=== PATIENT | female | born 1950 | race Caucasian/White ===

== ENCOUNTER 2016-05-27 14:14 | Outpatient (CLI) | payer MEDICARE, BC ==
[2016-05-27 14:46] LABS: Anion Gap 17 mmol/L (10-20); BUN (Urea Nitrogen) 17 mg/dL (9.8-20.1); Calc. Creatinine Clearance 0 mL/min (70-130); Calcium 8.9 mg/dL (7.8-10.44); Carbon Dioxide 22 mmol/L (23-31); Chloride 100 mmol/L (98-107); Estimated GFR-MDRD 56; Glucose 136 mg/dL (80-115); Potassium 4.3 mmol/L (3.5-5.1); Sodium 135 mmol/L (136-145)
[2016-05-28 17:13] LABS: Creatinine, Urine Less than 20.00 mg/dL (47-110); Protein, Urine Random Quant Less than 10 mg/dL
== END 2016-05-27 14:15 | disposition home or self-care (01) ==
LOC: MADLAB 14:14
PROVIDERS: ATTEND Internal Medicine Nephrology
DX: I12.9 Hypertensive chronic kidney disease with stage 1 through stage 4 chronic kidney disease, or unspecified chronic kidney disease (principal); N18.3 Chronic kidney disease, stage 3 (moderate); E11.22 Type 2 diabetes mellitus with diabetic chronic kidney disease; R80.9 Proteinuria, unspecified; E87.1 Hypo-osmolality and hyponatremia
CPT/HCPCS: 36415; 80048; 82570; 83970; 84156

== ENCOUNTER 2017-01-21 13:46 | Outpatient (CLI) | payer MEDICARE, BC ==
[2017-01-21 15:06] LABS: Anion Gap 15 mmol/L (10-20); BUN (Urea Nitrogen) 22 mg/dL (9.8-20.1); Calc. Creatinine Clearance 0 mL/min (70-130); Calcium 8.8 mg/dL (7.8-10.44); Carbon Dioxide 26 mmol/L (23-31); Chloride 98 mmol/L (98-107); Estimated GFR-MDRD 45; Glucose 309 mg/dL (80-115); Potassium 4.4 mmol/L (3.5-5.1); Sodium 135 mmol/L (136-145)
== END 2017-01-21 13:47 | disposition home or self-care (01) ==
LOC: MADLAB 13:46
PROVIDERS: ATTEND Internal Medicine
DX: E87.1 Hypo-osmolality and hyponatremia (principal)
CPT/HCPCS: 36415; 80048

== ENCOUNTER 2017-01-25 13:33 | Outpatient (CLI) | payer MEDICARE, BC ==
--- NOTE | 2017-01-25 15:52 | RAD ---
RIGHT SHOULDER THREE VIEWS: 01/25/17 HISTORY: Chronic right shoulder pain. FINDINGS: Right shoulder prosthesis is in place with bulky heterotopic ossification superior to the humeral he ad component. No acute fractures are apparent. There is osteophytosis at the acromioclavicular joint . IMPRESSION: Abundant heterotopic ossification surrounding the right humeral head prosthesis. Please consider ort hopedic evaluation. POS: [facility]
--- NOTE | 2017-01-25 15:55 | RAD ---
FOUR VIEW LEFT KNEE SERIES 01/25/17 CLINICAL HISTORY: Osteoarthritis, chronic pain. Mild osteoarthritis of the left knee present. There is no fracture or capsular distention. There is patellar enthesophyte formation. IMPRESSION: No acute osseous abnormality. POS: [facility]
== END 2017-01-25 13:34 | disposition home or self-care (01) ==
LOC: MADRAD 13:33
PROVIDERS: ATTEND Internal Medicine
DX: M17.0 Bilateral primary osteoarthritis of knee (principal); M25.511 Pain in right shoulder

== ENCOUNTER → 2017-10-21 | Emergency (ER) | payer MEDICARE, BC ==
--- NOTE | 2017-10-21 22:05 | RAD ---
CHEST ONE VIEW: 10/21/17 HISTORY: Pain. COMPARISON: None. FINDINGS: There are sternotomy wires and mediastinal clips. Diminished lung volumes likely due to poor inspirat ory effort. No consolidation or mass. No pleural effusion or pneumothorax. Normal cardiac silhouette . Right humeral prosthesis is noted. IMPRESSION: No acute cardiopulmonary process. POS: [facility]
[2017-10-21 22:30] LABS: #Basophils 0.1 thou/uL (0.0-0.2); #Eosinphils 0.1 thou/uL (0.0-0.7); #Lymphocytes 3.2 thou/uL (1.20-3.40); #Monocytes 0.7 thou/uL (0.11-0.59); #Neutrophils 4.7 thou/uL (1.40-6.50); %Eosinophils 1.5 % (0.0-10.0); %Lymphocytes 36.5 % (21.0-51.0); %Monocytes 8.3 % (0.0-10.0); %Neutrophils 52.7 % (42.0-75.0); Hemoglobin 13.4 g/dL (12.0-16.0); Mean Corpuscular HGB CONC 34.3 g/dL (32.0-36.0); Mean Corpuscular Hemoglobin 30.4 pg (27.0-31.0); Mean Corpuscular Volume 88.7 fL (78.0-98.0); Mean Platelet Volume 8.3 fL (7.4-10.4); Platelet Count 244 thou/uL (130-400); RBC Distribution Width 11.9 % (11.5-14.5); Red Blood Cell (RBC) Count 4.41 mill/uL (4.20-5.40); White Blood Cell (WBC) Count 8.9 thou/uL (4.8-10.8)
[2017-10-21 22:32] LABS: ALT (SGPT) 19 U/L (8-55); AST (SGOT) 19 U/L (5-34); Alkaline Phosphatase 75 U/L (40-150); Anion Gap 14 mmol/L (10-20); BUN (Urea Nitrogen) 15 mg/dL (9.8-20.1); Bilirubin, Total 0.7 mg/dL (0.2-1.2); CK (CPK) 57 U/L (29-168); Calc. Creatinine Clearance 0 mL/min (70-130); Calcium 8.8 mg/dL (7.8-10.44); Carbon Dioxide 25 mmol/L (23-31); Chloride 100 mmol/L (98-107); Estimated GFR-MDRD 43; Globulin 2.9 g/dL (2.4-3.5); Glucose 230 mg/dL (80-115); Magnesium 2.4 mg/dL (1.6-2.6); Protein, Total 6.9 g/dL (6.0-8.3); Sodium 135 mmol/L (136-145)
[2017-10-21 22:38] LABS: CKMB 0.8 ng/mL (0-6.6); Troponin I Less than 0.010 ng/mL (< 0.028)
== END ==
LOC: MADERS 21:18
DX: I20.9 Angina pectoris, unspecified (principal); I10 Essential (primary) hypertension; E03.9 Hypothyroidism, unspecified; E78.5 Hyperlipidemia, unspecified; E11.9 Type 2 diabetes mellitus without complications; F32.9 Major depressive disorder, single episode, unspecified; F17.210 Nicotine dependence, cigarettes, uncomplicated; Z79.82 Long term (current) use of aspirin; Z79.899 Other long term (current) drug therapy
CPT/HCPCS: 36415; 71045; 80053; 82553; 83735; 83880; 84484; 85025; 85610; 85730; 93005; 94760

== ENCOUNTER 2018-02-24 13:25 | Inpatient (IN) | payer MEDICARE, BC ==
[2018-02-24] MEDS ORDERED: Ondansetron ODT 4 MG TAB PO PRN (15:54)
[2018-02-24] MEDS ORDERED: Nystatin Powder 15 GM BOT TOP PRN (16:18)
[2018-02-24] MEDS ORDERED: Dextrose 50% Abboject 50 ML SYRINGE SLOW IVP PRN (17:14)
[2018-02-24] MEDS ORDERED: Dextrose 5% in Water 1,000 ML IV PRN (17:14)
[2018-02-24] MEDS: traMADol HCl 50 MG TAB PO PRN (18:02)
[2018-02-24] MEDS: Famotidine 20 MG TAB PO SCH (20:28)
[2018-02-24] MEDS: Atorvastatin Calcium 10 MG TAB PO SCH (20:28)
[2018-02-24] MEDS: Lantus 1000 UNITS/10 ML VIAL SC SCH (20:29)
[2018-02-24] MEDS: traZODone HCl 50 MG TAB PO PRN (20:29)
[2018-02-24] MEDS: Sulfameth/Trimethoprim DS 800-160mg TAB PO SCH (20:29)
[2018-02-24] MEDS: HumaLOG 300 UNITS/3 ML VIAL SC PRN (20:30)
[2018-02-24] MEDS ORDERED: ATORVASTATIN CALCIUM 40 MG PO SCH (21:00)
[2018-02-24] MEDS ORDERED: INSULIN DETEMIR 42 UNIT SQ SCH (21:00)
--- NOTE | 2018-02-24 23:08 | HP ---
DATE OF ADMISSION: 02/24/2018 ADMITTING PHYSICIAN: Hood Alonso M.D. PRIMARY CARE PHYSICIAN: Dr. Gris Gan. REASON FOR ADMISSION: Skilled rehabilitation at [facility] swing bed, status post left intertrochanteric femur fracture status post open reduction and internal fixation. HISTORY OF PRESENT ILLNESS: Ms. Stephens is a 67-year-old female who stated on 02/03/2018. She lost her balance while walking with her dog and she struck left side on concrete and was unable to stand. Patient was seen at [facility] and was noted to have a left intertrochanteric femur fracture. The patient was evaluated by Dr. Beltran and underwent an ORIF on 02/03/2018 with gamma nailing without complications. Patient was placed on weightbearing as tolerated. She does have a previous history of a CVA and has some residual poor balance and gait instability. Patient states she feels this contributed to her fall. Patient does have a history of diabetes and blood sugars in the hospital were noted to not be adequately controlled. Patient was subsequently transferred to [facility] inpatient in [place]. She was admitted there on 02/07/2018 until today 02/24/2018. Patient was noted to still be unsteady on her gait and needed some more physical therapy prior to going back to home. Patient does have 1 daughter who works television technician and she lives by herself across on the same land, as her daughter. Patient when I saw her today, she was not too pleased to be in another facility , but she understands daughter's decision for this. She denied any nausea, any vomiting, any fever, chest pain. No constipation. She states she is well controlled on medications. She takes tramadol and Tylenol occasionally for pain. Patient had been participating in PT prior to discharge here. I was able to speak to patient's daughter who states she is an only child and mother is currently upset with her for bringing her to another facility. Ms. Jasmine Lucoi is the daughter and she states she wants mother's medication especially her antidepressants Cymbalta to be adjusted and discontinued and started on a new medication. Patient's daughter states she sees psychiatrist, Dr. Nieto and they added Wellbutrin to her medication at one point, which made her very confused and agitated. Dr. Nieto recommended ECT for patient's depression, but they have not been able to do this. States PT at [facility] pt has manipulative behaviors. Otherwise, the patient is doing okay and understands the reason to why she will be in this facility. PAST MEDICAL HISTORY: Significant for chronic kidney disease stage 3, depression, diabetic neuropathy, diabetic type 2, hypothyroidism, hypertension, CAD, history of CVA, and left intertrochanteric femur fracture. PAST SURGICAL HISTORY: Cholecystectomy, CABG, appendectomy, rotator cuff, right breast lump removal, hysterectomy, and left intertrochanteric ORIF. ALLERGIES: OXYCODONE, PERCODAN, and ASPIRIN. CODE STATUS: FULL CODE. SOCIAL HISTORY: Patient lives alone in [place], [place]. Daughter lives nearby , but works television technician. Denies tobacco, drug or alcohol use. MEDICATIONS: Tylenol 650 p.r.n., alogliptin 25 daily, Plavix 75 daily, Cymbalta 60 daily, Jardiance 25 daily, fish oil 2000 mg daily, Lantus 42 units at bedtime, levothyroxine 112 mcg daily, atorvastatin 40 at bedtime, Ranexa 1000 b.i.d., tramadol 50 q.6 hours p.r.n. pain. REVIEW OF SYSTEMS: General: The patient denies any fever or chills. She denies any nausea or vomiting. Complains of weakness. HEENT: No vision changes, hearing changes, or dysphagia. Chest: No chest pain, shortness of breath, palpitation, or dizziness. Respiratory: Denies cough, shortness of breath, or wheezing. Abdomen: Denies abdominal pain, nausea, vomiting. Genitourinary: Denies dysuria or hematuria. Skin: Denies any easy bruising. Musculoskeletal: Complains of left thigh tenderness and gait instability. Neurologic: Patient denies any memory loss, hallucinations, or delusions. PHYSICAL EXAMINATION: VITAL SIGNS: Temperature 97.6, pulse 62, respirations 20, O2 sat 100% on room air, blood pressure 194/76. GENERAL APPEARANCE: Alert, awake, oriented x3, female lying in bed, pleasant, in no apparent distress. HEENT: Normocephalic, atraumatic. PERRL. Nonicteric sclerae. Oral mucous membranes moist. NECK: Supple, no JVD. CHEST: Clear to auscultation bilaterally. CARDIAC: S1, S2, no murmurs, rubs or gallops. No JVD or carotid bruit. ABDOMEN: Positive bowel sounds, soft, nontender, nondistended. EXTREMITIES: Left lateral thigh with 3 areas of incisions and dressing removed serosanguineous drainage and erythema to three different incision sites, mildly tender to touch surrounding hardness, but no surrounding erythema ordered and had incision sites. SKIN: On the abdominal fold, moist erythematous and multiple bruises and abrasion to extremities. ASSESSMENT: 1. Status post left intertrochanteric fracture, status post open reduction and internal fixation. 2. Gait instability. 3. Incision sites infection. 4. Chronic kidney disease, stage 3. 5. Diabetes, type 2. 6. Depression. 7. History of cerebrovascular accident. 8. Hypothyroidism. 9. Skin Candidiasis PLAN: Patient is being admitted to [facility] swing bed for rehabilitation and gait strengthening. We will consult physical therapy for strengthening in order to gain modified independence with gait. We will consult occupational therapy to help with activities of daily living prior to going back to her home. We will collect cultures to the incision site. We will start patient on Bactrim double strength 1 tab twice a day x10 days. Patient will follow up with Orthopedic surgeon on the . We will resume all home medications. We will manage pain with tramadol and Tylenol as needed. We will place patient on Colace b.i.d. p.r.n. for stool. Constipation, we will place patient on Lovenox 30 daily for deep venous thrombosis prophylaxis. We will monitor patient closely for any medical comorbidities that might interfere with rehabilitation process. We will place patient on Accu-Cheks a.c. and at bedtime. We will place patient on a sliding scale. We will place patient on fall precautions. Notified daughter it is best her psychiatrist Dr. Nieto adjust her antidepressant and it is not the best idea switching her medications while she is trying to get therapy here as this can interfere with her recovery. CODE STATUS: FULL CODE. DISPOSITION: Home. Extended length of stay is 2-3 weeks. MTDD
[2018-02-25] MEDS: traMADol HCl 50 MG TAB PO PRN ×3 (00:07→21:39)
[2018-02-25] MEDS: Acetaminophen 325 MG TAB PO PRN ×3 (02:17→18:12)
[2018-02-25 05:40] LABS: Anion Gap 14 mmol/L (10-20); BUN (Urea Nitrogen) 10 mg/dL (9.8-20.1); Calc. Creatinine Clearance 76 mL/min (70-130); Carbon Dioxide 22 mmol/L (23-31); Chloride 108 mmol/L (98-107); Estimated GFR-MDRD 62; Glucose 136 mg/dL (80-115); Potassium 4.4 mmol/L (3.5-5.1); Sodium 140 mmol/L (136-145)
[2018-02-25 06:40] LABS: Hemoglobin 10.6 g/dL (12.0-16.0); Mean Corpuscular HGB CONC 33.5 g/dL (32.0-36.0); Mean Corpuscular Hemoglobin 31.3 pg (27.0-31.0); Mean Corpuscular Volume 93.4 fL (78.0-98.0); Mean Platelet Volume 7.7 fL (7.4-10.4); Platelet Count 365 thou/uL (130-400); RBC Distribution Width 13.9 % (11.5-14.5); Red Blood Cell (RBC) Count 3.39 mill/uL (4.20-5.40); White Blood Cell (WBC) Count 8.6 thou/uL (4.8-10.8)
[2018-02-25 06:41] LABS: #Basophils 0.1 thou/uL (0.0-0.2); #Eosinphils 0.1 thou/uL (0.0-0.7); #Lymphocytes 2.7 thou/uL (1.20-3.40); #Monocytes 0.8 thou/uL (0.11-0.59); %Basophils 0.8 % (0.0-1.0); %Eosinophils 1.2 % (0.0-10.0); %Lymphocytes 31.2 % (21.0-51.0); %Monocytes 8.8 % (0.0-10.0); %Neutrophils 57.9 % (42.0-75.0)
[2018-02-25] MEDS: Famotidine 20 MG TAB PO SCH ×2 (08:41→20:44)
[2018-02-25] MEDS: Enoxaparin Sodium 30 MG/0.3 ML SYRINGE SC SCH (08:41)
[2018-02-25] MEDS: DULoxetine 30 MG CAP PO SCH (08:49)
[2018-02-25] MEDS: Levothyroxine Sodium 112 MCG TAB PO SCH (08:49)
[2018-02-25] MEDS: Sulfameth/Trimethoprim DS 800-160mg TAB PO SCH ×2 (08:49→20:45)
[2018-02-25] MEDS: Clopidogrel Bisulfate 75 MG TAB PO SCH (08:49)
[2018-02-25] MEDS: Alogliptin 25 MG TAB PO SCH ×2 (08:50→10:11)
[2018-02-25] MEDS: Fish Oil 1,000 MG CAP PO SCH (08:50)
[2018-02-25] MEDS: Empagliflozin [Jardiance] 25 MG PO SCH (08:50)
[2018-02-25] MEDS ORDERED: Aspirin 81 mg Enteric Coated Tablet PO SCH (09:00)
[2018-02-25] MEDS: HumaLOG 300 UNITS/3 ML VIAL SC PRN ×3 (12:05→20:46)
[2018-02-25] MEDS: Atorvastatin Calcium 10 MG TAB PO SCH (20:44)
[2018-02-25] MEDS: Lantus 1000 UNITS/10 ML VIAL SC SCH (20:45)
[2018-02-25] MEDS: traZODone HCl 50 MG TAB PO PRN (20:45)
[2018-02-26] MEDS: traMADol HCl 50 MG TAB PO PRN ×3 (03:47→22:33)
[2018-02-26] MEDS: Enoxaparin Sodium 30 MG/0.3 ML SYRINGE SC SCH (09:08)
[2018-02-26] MEDS: DULoxetine 30 MG CAP PO SCH (09:08)
[2018-02-26] MEDS: Famotidine 20 MG TAB PO SCH ×2 (09:08→20:35)
[2018-02-26] MEDS: Fish Oil 1,000 MG CAP PO SCH (09:08)
[2018-02-26] MEDS: Clopidogrel Bisulfate 75 MG TAB PO SCH (09:08)
[2018-02-26] MEDS: Sulfameth/Trimethoprim DS 800-160mg TAB PO SCH ×2 (09:08→20:36)
[2018-02-26] MEDS: Levothyroxine Sodium 112 MCG TAB PO SCH (09:08)
[2018-02-26] MEDS: Empagliflozin [Jardiance] 25 MG PO SCH (09:09)
[2018-02-26] MEDS: SAXAGLIPTIN PO SCH (09:09)
[2018-02-26] MEDS: HumaLOG 300 UNITS/3 ML VIAL SC PRN ×2 (12:01→20:36)
[2018-02-26] MEDS: Acetaminophen 325 MG TAB PO PRN (17:51)
[2018-02-26] MEDS: Lantus 1000 UNITS/10 ML VIAL SC SCH (20:35)
[2018-02-26] MEDS: Atorvastatin Calcium 10 MG TAB PO SCH (20:35)
[2018-02-26] MEDS: traZODone HCl 50 MG TAB PO PRN (20:36)
[2018-02-27] MEDS: traMADol HCl 50 MG TAB PO PRN ×2 (07:30→18:13)
[2018-02-27] MEDS: Famotidine 20 MG TAB PO SCH ×2 (08:51→20:29)
[2018-02-27] MEDS: Levothyroxine Sodium 112 MCG TAB PO SCH (08:51)
[2018-02-27] MEDS: Acetaminophen 325 MG TAB PO PRN ×2 (08:51→20:29)
[2018-02-27] MEDS: Sulfameth/Trimethoprim DS 800-160mg TAB PO SCH ×2 (08:51→20:28)
[2018-02-27] MEDS: DULoxetine 30 MG CAP PO SCH (08:51)
[2018-02-27] MEDS: Clopidogrel Bisulfate 75 MG TAB PO SCH (08:51)
[2018-02-27] MEDS: Enoxaparin Sodium 30 MG/0.3 ML SYRINGE SC SCH (08:51)
[2018-02-27] MEDS: Fish Oil 1,000 MG CAP PO SCH (08:51)
[2018-02-27] MEDS: Empagliflozin [Jardiance] 25 MG PO SCH (09:19)
[2018-02-27] MEDS: SAXAGLIPTIN PO SCH (09:20)
[2018-02-27] MEDS: Atorvastatin Calcium 10 MG TAB PO SCH (20:28)
[2018-02-27] MEDS: Lantus 1000 UNITS/10 ML VIAL SC SCH (20:41)
[2018-02-27] MEDS ORDERED: Dextrose 50% Abboject 50 ML SYRINGE IVP PRN (21:30)
[2018-02-27] MEDS ORDERED: Dextrose 5% in Water 1,000 ML IV PRN (21:30)
[2018-02-27] MEDS: traZODone HCl 50 MG TAB PO PRN (23:42)
[2018-02-28] MEDS: Famotidine 20 MG TAB PO SCH ×2 (08:09→21:07)
[2018-02-28] MEDS: Fish Oil 1,000 MG CAP PO SCH (08:09)
[2018-02-28] MEDS: DULoxetine 30 MG CAP PO SCH (08:09)
[2018-02-28] MEDS: Clopidogrel Bisulfate 75 MG TAB PO SCH (08:10)
[2018-02-28] MEDS: Levothyroxine Sodium 112 MCG TAB PO SCH (08:10)
[2018-02-28] MEDS: SAXAGLIPTIN PO SCH (08:12)
[2018-02-28] MEDS: Empagliflozin [Jardiance] 25 MG PO SCH (08:12)
[2018-02-28] MEDS: Sulfameth/Trimethoprim DS 800-160mg TAB PO SCH ×2 (08:12→21:07)
[2018-02-28] MEDS: Enoxaparin Sodium 30 MG/0.3 ML SYRINGE SC SCH (08:21)
[2018-02-28] MEDS: traMADol HCl 50 MG TAB PO PRN ×2 (11:29→21:08)
[2018-02-28] MEDS: HumaLOG 300 UNITS/3 ML VIAL SC PRN (11:48)
[2018-02-28 14:06] LABS: Bilirubin Negative (Negative); Blood, Urine Negative (Negative); Clarity Clear (Clear); Glucose, Urine (Dipstick) >=1000 mg/dL (Negative); Leukocyte Negative (Negative); Nitrite Negative (Negative); Protein, Urine (Dipstick) Negative (Neg-Trace); Urobilinogen 0.2 mg/dL (0.2-1.0)
[2018-02-28 14:07] LABS: Specific Gravity, Urine 1.009 (1.002-1.036)
[2018-02-28] MEDS: Acetaminophen 325 MG TAB PO PRN (16:00)
[2018-02-28] MEDS: Atorvastatin Calcium 10 MG TAB PO SCH (21:07)
[2018-02-28] MEDS: Lantus 1000 UNITS/10 ML VIAL SC SCH (21:07)
[2018-02-28] MEDS: traZODone HCl 50 MG TAB PO PRN (21:08)
[2018-03-01] MEDS: Acetaminophen 325 MG TAB PO PRN ×3 (01:29→19:43)
[2018-03-01] MEDS: traMADol HCl 50 MG TAB PO PRN ×3 (04:46→19:44)
[2018-03-01] MEDS: DULoxetine 30 MG CAP PO SCH (08:03)
[2018-03-01] MEDS: Enoxaparin Sodium 30 MG/0.3 ML SYRINGE SC SCH (08:04)
[2018-03-01] MEDS: Famotidine 20 MG TAB PO SCH ×2 (08:04→20:02)
[2018-03-01] MEDS: Fish Oil 1,000 MG CAP PO SCH (08:04)
[2018-03-01] MEDS: Sulfameth/Trimethoprim DS 800-160mg TAB PO SCH ×2 (08:05→20:03)
[2018-03-01] MEDS: SAXAGLIPTIN PO SCH (08:05)
[2018-03-01] MEDS: Levothyroxine Sodium 112 MCG TAB PO SCH (08:05)
[2018-03-01] MEDS: Clopidogrel Bisulfate 75 MG TAB PO SCH (08:05)
[2018-03-01] MEDS: Empagliflozin [Jardiance] 25 MG PO SCH (08:05)
[2018-03-01] MEDS: Atorvastatin Calcium 10 MG TAB PO SCH (20:03)
[2018-03-01] MEDS: traZODone HCl 50 MG TAB PO PRN (20:07)
[2018-03-01] MEDS: Lantus 1000 UNITS/10 ML VIAL SC SCH (22:04)
[2018-03-02] MEDS: Acetaminophen 325 MG TAB PO PRN ×4 (01:18→20:49)
[2018-03-02] MEDS: traMADol HCl 50 MG TAB PO PRN ×4 (01:23→21:01)
[2018-03-02] MEDS: DULoxetine 30 MG CAP PO SCH (08:42)
[2018-03-02] MEDS: Enoxaparin Sodium 30 MG/0.3 ML SYRINGE SC SCH (08:42)
[2018-03-02] MEDS: Sulfameth/Trimethoprim DS 800-160mg TAB PO SCH ×2 (08:42→20:50)
[2018-03-02] MEDS: Famotidine 20 MG TAB PO SCH ×2 (08:42→20:50)
[2018-03-02] MEDS: Levothyroxine Sodium 112 MCG TAB PO SCH (08:42)
[2018-03-02] MEDS: Fish Oil 1,000 MG CAP PO SCH (08:42)
[2018-03-02] MEDS: Clopidogrel Bisulfate 75 MG TAB PO SCH (08:42)
[2018-03-02] MEDS: Empagliflozin [Jardiance] 25 MG PO SCH (08:43)
[2018-03-02] MEDS: SAXAGLIPTIN PO SCH (08:44)
[2018-03-02] MEDS: HumaLOG 300 UNITS/3 ML VIAL SC PRN (13:11)
[2018-03-02] MEDS: Atorvastatin Calcium 10 MG TAB PO SCH (20:49)
[2018-03-02] MEDS: Lantus 1000 UNITS/10 ML VIAL SC SCH (21:00)
[2018-03-02] MEDS: traZODone HCl 50 MG TAB PO PRN (21:06)
[2018-03-03] MEDS: traMADol HCl 50 MG TAB PO PRN ×4 (03:01→23:18)
[2018-03-03] MEDS: Acetaminophen 325 MG TAB PO PRN ×3 (07:48→23:18)
[2018-03-03] MEDS: Empagliflozin [Jardiance] 25 MG PO SCH (08:51)
[2018-03-03] MEDS: Levothyroxine Sodium 112 MCG TAB PO SCH (08:52)
[2018-03-03] MEDS: Clopidogrel Bisulfate 75 MG TAB PO SCH (08:52)
[2018-03-03] MEDS: Famotidine 20 MG TAB PO SCH ×2 (08:52→20:44)
[2018-03-03] MEDS: Fish Oil 1,000 MG CAP PO SCH (08:52)
[2018-03-03] MEDS: DULoxetine 30 MG CAP PO SCH (08:52)
[2018-03-03] MEDS: Sulfameth/Trimethoprim DS 800-160mg TAB PO SCH ×2 (08:53→20:44)
[2018-03-03] MEDS: SAXAGLIPTIN PO SCH (08:53)
[2018-03-03] MEDS: Enoxaparin Sodium 30 MG/0.3 ML SYRINGE SC SCH (08:54)
--- NOTE | 2018-03-03 19:27 | RAD ---
LEFT HIP TWO VIEW 03/03/18 HISTORY: Fall. COMPARISON: Radiograph of 04/13/16. FINDINGS: There is a new nail through the left femur. There is an anterior trochanteric fracture. There is some heterotopic ossification. IMPRESSION: New intramedullary nail through the left femur through an intertrochanteric fracture which is incompl etely healed. Recommend correlation with the timing of this fracture. This appears relatively acute. If the patient's intramedullary nail is over six months old, this is likely a new fracture. POS: HOME
[2018-03-03] MEDS: Atorvastatin Calcium 10 MG TAB PO SCH (20:43)
[2018-03-03] MEDS: traZODone HCl 50 MG TAB PO PRN (23:18)
[2018-03-03] MEDS: Lantus 1000 UNITS/10 ML VIAL SC SCH (23:19)
[2018-03-04] MEDS: traMADol HCl 50 MG TAB PO PRN ×3 (08:44→22:05)
[2018-03-04] MEDS: Enoxaparin Sodium 30 MG/0.3 ML SYRINGE SC SCH (08:45)
[2018-03-04] MEDS: Acetaminophen 325 MG TAB PO PRN ×3 (08:45→23:52)
[2018-03-04] MEDS: Fish Oil 1,000 MG CAP PO SCH (08:46)
[2018-03-04] MEDS: Famotidine 20 MG TAB PO SCH ×2 (08:46→20:36)
[2018-03-04] MEDS: DULoxetine 30 MG CAP PO SCH (08:46)
[2018-03-04] MEDS: Sulfameth/Trimethoprim DS 800-160mg TAB PO SCH ×2 (08:46→20:36)
[2018-03-04] MEDS: Levothyroxine Sodium 112 MCG TAB PO SCH (08:47)
[2018-03-04] MEDS: Empagliflozin [Jardiance] 25 MG PO SCH (08:47)
[2018-03-04] MEDS: ONGLYZA 5 MG PO SCH (08:47)
[2018-03-04] MEDS: Clopidogrel Bisulfate 75 MG TAB PO SCH (08:47)
[2018-03-04] MEDS: Atorvastatin Calcium 10 MG TAB PO SCH (20:35)
[2018-03-04] MEDS: traZODone HCl 50 MG TAB PO PRN (20:36)
[2018-03-04] MEDS: Lantus 1000 UNITS/10 ML VIAL SC SCH (20:36)
[2018-03-05] MEDS: Enoxaparin Sodium 30 MG/0.3 ML SYRINGE SC SCH (07:56)
[2018-03-05] MEDS: Fish Oil 1,000 MG CAP PO SCH (07:57)
[2018-03-05] MEDS: DULoxetine 30 MG CAP PO SCH (07:57)
[2018-03-05] MEDS: Sulfameth/Trimethoprim DS 800-160mg TAB PO SCH ×2 (07:57→21:03)
[2018-03-05] MEDS: Levothyroxine Sodium 112 MCG TAB PO SCH (07:58)
[2018-03-05] MEDS: Famotidine 20 MG TAB PO SCH ×2 (07:58→21:02)
[2018-03-05] MEDS: Empagliflozin [Jardiance] 25 MG PO SCH (07:58)
[2018-03-05] MEDS: Clopidogrel Bisulfate 75 MG TAB PO SCH (07:58)
[2018-03-05] MEDS: ONGLYZA 5 MG PO SCH (07:59)
[2018-03-05] MEDS: Acetaminophen 325 MG TAB PO PRN ×3 (08:26→23:35)
[2018-03-05] MEDS: traMADol HCl 50 MG TAB PO PRN ×3 (08:26→21:03)
[2018-03-05] MEDS: Atorvastatin Calcium 10 MG TAB PO SCH (21:01)
[2018-03-05] MEDS: Lantus 1000 UNITS/10 ML VIAL SC SCH (21:02)
[2018-03-05] MEDS: traZODone HCl 50 MG TAB PO PRN (21:04)
[2018-03-06] MEDS: Fish Oil 1,000 MG CAP PO SCH (09:15)
[2018-03-06] MEDS: Famotidine 20 MG TAB PO SCH ×2 (09:15→20:08)
[2018-03-06] MEDS: DULoxetine 30 MG CAP PO SCH (09:15)
[2018-03-06] MEDS: Clopidogrel Bisulfate 75 MG TAB PO SCH (09:16)
[2018-03-06] MEDS: Acetaminophen 325 MG TAB PO PRN ×2 (09:16→20:09)
[2018-03-06] MEDS: traMADol HCl 50 MG TAB PO PRN ×2 (09:16→20:08)
[2018-03-06] MEDS: Sulfameth/Trimethoprim DS 800-160mg TAB PO SCH (09:16)
[2018-03-06] MEDS: Levothyroxine Sodium 112 MCG TAB PO SCH (09:16)
[2018-03-06] MEDS: ONGLYZA 5 MG PO SCH (09:17)
[2018-03-06] MEDS: Empagliflozin [Jardiance] 25 MG PO SCH (09:17)
[2018-03-06] MEDS: Enoxaparin Sodium 30 MG/0.3 ML SYRINGE SC SCH (09:18)
[2018-03-06] MEDS: Atorvastatin Calcium 10 MG TAB PO SCH (20:08)
[2018-03-06] MEDS: Lantus 1000 UNITS/10 ML VIAL SC SCH (21:43)
[2018-03-07] MEDS: traZODone HCl 50 MG TAB PO PRN ×2 (00:34→20:37)
[2018-03-07] MEDS: traMADol HCl 50 MG TAB PO PRN ×2 (03:37→12:06)
[2018-03-07] MEDS: Acetaminophen 325 MG TAB PO PRN ×2 (03:38→20:37)
[2018-03-07] MEDS: DULoxetine 30 MG CAP PO SCH (08:58)
[2018-03-07] MEDS: Famotidine 20 MG TAB PO SCH ×2 (08:58→20:37)
[2018-03-07] MEDS: Levothyroxine Sodium 112 MCG TAB PO SCH (08:59)
[2018-03-07] MEDS: Fish Oil 1,000 MG CAP PO SCH (08:59)
[2018-03-07] MEDS: ONGLYZA 5 MG PO SCH (08:59)
[2018-03-07] MEDS: Clopidogrel Bisulfate 75 MG TAB PO SCH (08:59)
[2018-03-07] MEDS: Enoxaparin Sodium 30 MG/0.3 ML SYRINGE SC SCH (09:00)
[2018-03-07] MEDS: Empagliflozin [Jardiance] 25 MG PO SCH (09:01)
[2018-03-07] MEDS: Atorvastatin Calcium 10 MG TAB PO SCH (20:36)
[2018-03-07] MEDS: Lantus 1000 UNITS/10 ML VIAL SC SCH (20:37)
[2018-03-08] MEDS: traMADol HCl 50 MG TAB PO PRN ×3 (00:21→20:37)
[2018-03-08] MEDS: ONGLYZA 5 MG PO SCH (08:34)
[2018-03-08] MEDS: Empagliflozin [Jardiance] 25 MG PO SCH (08:34)
[2018-03-08] MEDS: Enoxaparin Sodium 30 MG/0.3 ML SYRINGE SC SCH (08:35)
[2018-03-08] MEDS: Fish Oil 1,000 MG CAP PO SCH (08:35)
[2018-03-08] MEDS: Clopidogrel Bisulfate 75 MG TAB PO SCH (08:36)
[2018-03-08] MEDS: DULoxetine 30 MG CAP PO SCH (08:36)
[2018-03-08] MEDS: Famotidine 20 MG TAB PO SCH ×2 (08:36→20:34)
[2018-03-08] MEDS: Levothyroxine Sodium 112 MCG TAB PO SCH (08:36)
[2018-03-08] MEDS: Acetaminophen 325 MG TAB PO PRN ×2 (13:04→22:45)
[2018-03-08] MEDS: HumaLOG 300 UNITS/3 ML VIAL SC PRN (17:03)
[2018-03-08] MEDS: Atorvastatin Calcium 10 MG TAB PO SCH (20:34)
[2018-03-08] MEDS: traZODone HCl 50 MG TAB PO PRN (20:35)
[2018-03-08] MEDS: Lantus 1000 UNITS/10 ML VIAL SC SCH (20:43)
[2018-03-09] MEDS: traMADol HCl 50 MG TAB PO PRN ×3 (04:21→21:37)
[2018-03-09] MEDS: Famotidine 20 MG TAB PO SCH ×2 (08:23→21:36)
[2018-03-09] MEDS: Enoxaparin Sodium 30 MG/0.3 ML SYRINGE SC SCH (08:23)
[2018-03-09] MEDS: DULoxetine 30 MG CAP PO SCH (08:23)
[2018-03-09] MEDS: ONGLYZA 5 MG PO SCH (08:24)
[2018-03-09] MEDS: Empagliflozin [Jardiance] 25 MG PO SCH (08:24)
[2018-03-09] MEDS: Levothyroxine Sodium 112 MCG TAB PO SCH (08:24)
[2018-03-09] MEDS: Clopidogrel Bisulfate 75 MG TAB PO SCH (08:27)
[2018-03-09] MEDS: Fish Oil 1,000 MG CAP PO SCH (08:27)
[2018-03-09] MEDS: Acetaminophen 325 MG TAB PO PRN ×2 (12:31→21:39)
[2018-03-09] MEDS: HumaLOG 300 UNITS/3 ML VIAL SC PRN (17:02)
[2018-03-09] MEDS: Atorvastatin Calcium 10 MG TAB PO SCH (21:36)
[2018-03-09] MEDS: traZODone HCl 50 MG TAB PO PRN (21:37)
[2018-03-09] MEDS: Lantus 1000 UNITS/10 ML VIAL SC SCH (21:39)
[2018-03-10] MEDS: Clopidogrel Bisulfate 75 MG TAB PO SCH (08:53)
[2018-03-10] MEDS: Empagliflozin [Jardiance] 25 MG PO SCH (08:53)
[2018-03-10] MEDS: Enoxaparin Sodium 30 MG/0.3 ML SYRINGE SC SCH (08:53)
[2018-03-10] MEDS: Famotidine 20 MG TAB PO SCH ×2 (08:53→20:28)
[2018-03-10] MEDS: DULoxetine 30 MG CAP PO SCH (08:53)
[2018-03-10] MEDS: Fish Oil 1,000 MG CAP PO SCH (08:53)
[2018-03-10] MEDS: Levothyroxine Sodium 112 MCG TAB PO SCH (08:53)
[2018-03-10] MEDS: ONGLYZA 5 MG PO SCH (08:54)
[2018-03-10] MEDS: traMADol HCl 50 MG TAB PO PRN ×2 (11:05→20:26)
[2018-03-10] MEDS: HumaLOG 300 UNITS/3 ML VIAL SC PRN (12:02)
[2018-03-10] MEDS: Acetaminophen 325 MG TAB PO PRN (20:26)
[2018-03-10] MEDS: Atorvastatin Calcium 10 MG TAB PO SCH (20:27)
[2018-03-10] MEDS: traZODone HCl 50 MG TAB PO PRN (20:27)
[2018-03-10] MEDS: Lantus 1000 UNITS/10 ML VIAL SC SCH (20:31)
[2018-03-11] MEDS: Fish Oil 1,000 MG CAP PO SCH (09:02)
[2018-03-11] MEDS: DULoxetine 30 MG CAP PO SCH (09:03)
[2018-03-11] MEDS: Famotidine 20 MG TAB PO SCH ×2 (09:03→20:40)
[2018-03-11] MEDS: Empagliflozin [Jardiance] 25 MG PO SCH (09:03)
[2018-03-11] MEDS: Clopidogrel Bisulfate 75 MG TAB PO SCH (09:03)
[2018-03-11] MEDS: Levothyroxine Sodium 112 MCG TAB PO SCH (09:03)
[2018-03-11] MEDS: ONGLYZA 5 MG PO SCH (09:04)
[2018-03-11] MEDS: Enoxaparin Sodium 30 MG/0.3 ML SYRINGE SC SCH (09:05)
[2018-03-11] MEDS: Acetaminophen 325 MG TAB PO PRN ×3 (09:14→21:47)
[2018-03-11] MEDS: HumaLOG 300 UNITS/3 ML VIAL SC PRN (13:23)
[2018-03-11] MEDS: traMADol HCl 50 MG TAB PO PRN (19:35)
[2018-03-11] MEDS: Atorvastatin Calcium 10 MG TAB PO SCH (20:40)
[2018-03-11] MEDS: Lantus 1000 UNITS/10 ML VIAL SC SCH (21:08)
[2018-03-11] MEDS: traZODone HCl 50 MG TAB PO PRN (23:32)
[2018-03-12] MEDS: traMADol HCl 50 MG TAB PO PRN ×2 (06:00→20:18)
[2018-03-12] MEDS: Clopidogrel Bisulfate 75 MG TAB PO SCH (08:36)
[2018-03-12] MEDS: Levothyroxine Sodium 112 MCG TAB PO SCH (08:36)
[2018-03-12] MEDS: DULoxetine 30 MG CAP PO SCH (08:36)
[2018-03-12] MEDS: ONGLYZA 5 MG PO SCH (08:36)
[2018-03-12] MEDS: Famotidine 20 MG TAB PO SCH ×2 (08:36→20:18)
[2018-03-12] MEDS: Fish Oil 1,000 MG CAP PO SCH (08:36)
[2018-03-12] MEDS: Empagliflozin [Jardiance] 25 MG PO SCH (08:37)
[2018-03-12] MEDS: Enoxaparin Sodium 30 MG/0.3 ML SYRINGE SC SCH (08:41)
[2018-03-12] MEDS: HumaLOG 300 UNITS/3 ML VIAL SC PRN (08:44)
[2018-03-12] MEDS: Atorvastatin Calcium 10 MG TAB PO SCH (20:18)
[2018-03-12] MEDS: traZODone HCl 50 MG TAB PO PRN (20:19)
[2018-03-12] MEDS: Acetaminophen 325 MG TAB PO PRN (20:19)
[2018-03-12] MEDS: Lantus 1000 UNITS/10 ML VIAL SC SCH (20:22)
[2018-03-13] MEDS: HumaLOG 300 UNITS/3 ML VIAL SC PRN (08:07)
[2018-03-13] MEDS: ONGLYZA 5 MG PO SCH (08:09)
[2018-03-13] MEDS: Empagliflozin [Jardiance] 25 MG PO SCH (08:11)
[2018-03-13] MEDS: Fish Oil 1,000 MG CAP PO SCH (08:12)
[2018-03-13] MEDS: Levothyroxine Sodium 112 MCG TAB PO SCH (08:13)
[2018-03-13] MEDS: DULoxetine 30 MG CAP PO SCH (08:13)
[2018-03-13] MEDS: Clopidogrel Bisulfate 75 MG TAB PO SCH (08:14)
[2018-03-13] MEDS: Famotidine 20 MG TAB PO SCH ×2 (08:14→20:26)
[2018-03-13] MEDS: Enoxaparin Sodium 30 MG/0.3 ML SYRINGE SC SCH (08:14)
[2018-03-13] MEDS: traMADol HCl 50 MG TAB PO PRN ×3 (08:16→20:25)
[2018-03-13] MEDS: Lantus 1000 UNITS/10 ML VIAL SC SCH (20:26)
[2018-03-13] MEDS: Atorvastatin Calcium 10 MG TAB PO SCH (20:26)
[2018-03-13] MEDS: traZODone HCl 50 MG TAB PO PRN (20:26)
[2018-03-13] MEDS: Acetaminophen 325 MG TAB PO PRN (20:26)
[2018-03-14] MEDS: Fluticasone Propionate Nasal Spray 16 gm Bottle NASAL SCH ×3 (00:05→20:49)
[2018-03-14] MEDS: Fish Oil 1,000 MG CAP PO SCH (09:42)
[2018-03-14] MEDS: Clopidogrel Bisulfate 75 MG TAB PO SCH (09:42)
[2018-03-14] MEDS: traMADol HCl 50 MG TAB PO PRN ×2 (09:42→16:32)
[2018-03-14] MEDS: Famotidine 20 MG TAB PO SCH ×2 (09:42→20:49)
[2018-03-14] MEDS: DULoxetine 30 MG CAP PO SCH (09:43)
[2018-03-14] MEDS: ONGLYZA 5 MG PO SCH (09:44)
[2018-03-14] MEDS: Enoxaparin Sodium 30 MG/0.3 ML SYRINGE SC SCH (09:44)
[2018-03-14] MEDS: Empagliflozin [Jardiance] 25 MG PO SCH (09:44)
[2018-03-14] MEDS: Levothyroxine Sodium 112 MCG TAB PO SCH (09:49)
[2018-03-14] MEDS: Acetaminophen 325 MG TAB PO PRN (14:14)
[2018-03-14] MEDS: Atorvastatin Calcium 10 MG TAB PO SCH (20:48)
[2018-03-14] MEDS: Lantus 1000 UNITS/10 ML VIAL SC SCH (20:48)
[2018-03-14] MEDS: traZODone HCl 50 MG TAB PO PRN (20:49)
[2018-03-15] MEDS: Levothyroxine Sodium 112 MCG TAB PO SCH (05:53)
[2018-03-15] MEDS: Fluticasone Propionate Nasal Spray 16 gm Bottle NASAL SCH ×2 (08:09→21:25)
[2018-03-15] MEDS: traMADol HCl 50 MG TAB PO PRN ×2 (08:10→21:27)
[2018-03-15] MEDS: Famotidine 20 MG TAB PO SCH ×2 (08:11→21:25)
[2018-03-15] MEDS: Clopidogrel Bisulfate 75 MG TAB PO SCH (08:11)
[2018-03-15] MEDS: DULoxetine 30 MG CAP PO SCH (08:11)
[2018-03-15] MEDS: ONGLYZA 5 MG PO SCH (08:12)
[2018-03-15] MEDS: Empagliflozin [Jardiance] 25 MG PO SCH (08:12)
[2018-03-15] MEDS: Enoxaparin Sodium 30 MG/0.3 ML SYRINGE SC SCH (08:12)
[2018-03-15] MEDS: Fish Oil 1,000 MG CAP PO SCH (08:13)
[2018-03-15] MEDS: Atorvastatin Calcium 10 MG TAB PO SCH (21:24)
[2018-03-15] MEDS: Lantus 1000 UNITS/10 ML VIAL SC SCH (21:28)
[2018-03-15] MEDS: traZODone HCl 50 MG TAB PO PRN (21:28)
[2018-03-16] MEDS: Levothyroxine Sodium 112 MCG TAB PO SCH (05:46)
[2018-03-16] MEDS: Enoxaparin Sodium 30 MG/0.3 ML SYRINGE SC SCH (08:41)
[2018-03-16] MEDS: Fluticasone Propionate Nasal Spray 16 gm Bottle NASAL SCH ×2 (08:41→21:02)
[2018-03-16] MEDS: Famotidine 20 MG TAB PO SCH ×2 (08:42→21:02)
[2018-03-16] MEDS: DULoxetine 30 MG CAP PO SCH (08:42)
[2018-03-16] MEDS: Fish Oil 1,000 MG CAP PO SCH (08:42)
[2018-03-16] MEDS: Clopidogrel Bisulfate 75 MG TAB PO SCH (08:42)
[2018-03-16] MEDS: Empagliflozin [Jardiance] 25 MG PO SCH (08:43)
[2018-03-16] MEDS: ONGLYZA 5 MG PO SCH (08:43)
[2018-03-16] MEDS: traMADol HCl 50 MG TAB PO PRN ×2 (13:11→21:04)
[2018-03-16] MEDS: HumaLOG 300 UNITS/3 ML VIAL SC PRN (17:16)
[2018-03-16] MEDS: Atorvastatin Calcium 10 MG TAB PO SCH (20:59)
[2018-03-16] MEDS: traZODone HCl 50 MG TAB PO PRN (21:03)
[2018-03-16] MEDS: Acetaminophen 325 MG TAB PO PRN (21:03)
[2018-03-16] MEDS: Lantus 1000 UNITS/10 ML VIAL SC SCH (21:36)
[2018-03-17] MEDS: Levothyroxine Sodium 112 MCG TAB PO SCH (05:35)
[2018-03-17] MEDS: Fish Oil 1,000 MG CAP PO SCH (09:02)
[2018-03-17] MEDS: Clopidogrel Bisulfate 75 MG TAB PO SCH (09:03)
[2018-03-17] MEDS: DULoxetine 30 MG CAP PO SCH (09:03)
[2018-03-17] MEDS: Famotidine 20 MG TAB PO SCH ×2 (09:03→20:47)
[2018-03-17] MEDS: Enoxaparin Sodium 30 MG/0.3 ML SYRINGE SC SCH (09:03)
[2018-03-17] MEDS: ONGLYZA 5 MG PO SCH (09:04)
[2018-03-17] MEDS: Fluticasone Propionate Nasal Spray 16 gm Bottle NASAL SCH ×2 (09:04→20:47)
[2018-03-17] MEDS: Empagliflozin [Jardiance] 25 MG PO SCH (09:05)
[2018-03-17] MEDS: HumaLOG 300 UNITS/3 ML VIAL SC PRN (09:06)
[2018-03-17] MEDS: traMADol HCl 50 MG TAB PO PRN ×2 (09:18→20:49)
[2018-03-17] MEDS: Atorvastatin Calcium 10 MG TAB PO SCH (20:47)
[2018-03-17] MEDS: traZODone HCl 50 MG TAB PO PRN (20:48)
[2018-03-17] MEDS: Acetaminophen 325 MG TAB PO PRN (20:48)
[2018-03-17] MEDS: Lantus 1000 UNITS/10 ML VIAL SC SCH (20:50)
[2018-03-18] MEDS: Levothyroxine Sodium 112 MCG TAB PO SCH (05:19)
[2018-03-18] MEDS: Clopidogrel Bisulfate 75 MG TAB PO SCH (09:24)
[2018-03-18] MEDS: Enoxaparin Sodium 30 MG/0.3 ML SYRINGE SC SCH (09:24)
[2018-03-18] MEDS: Fish Oil 1,000 MG CAP PO SCH (09:24)
[2018-03-18] MEDS: DULoxetine 30 MG CAP PO SCH (09:24)
[2018-03-18] MEDS: Fluticasone Propionate Nasal Spray 16 gm Bottle NASAL SCH ×2 (09:24→21:16)
[2018-03-18] MEDS: Famotidine 20 MG TAB PO SCH ×2 (09:24→21:18)
[2018-03-18] MEDS: ONGLYZA 5 MG PO SCH (09:25)
[2018-03-18] MEDS: Empagliflozin [Jardiance] 25 MG PO SCH (09:25)
[2018-03-18] MEDS: HumaLOG 300 UNITS/3 ML VIAL SC PRN (11:26)
[2018-03-18] MEDS: Atorvastatin Calcium 10 MG TAB PO SCH (21:16)
[2018-03-18] MEDS: traMADol HCl 50 MG TAB PO PRN (21:16)
[2018-03-18] MEDS: traZODone HCl 50 MG TAB PO PRN (21:17)
[2018-03-18] MEDS: Lantus 1000 UNITS/10 ML VIAL SC SCH (21:18)
[2018-03-18] MEDS: Acetaminophen 325 MG TAB PO PRN (21:18)
[2018-03-19] MEDS: Levothyroxine Sodium 112 MCG TAB PO SCH (05:24)
[2018-03-19] MEDS: Fish Oil 1,000 MG CAP PO SCH (08:49)
[2018-03-19] MEDS: Clopidogrel Bisulfate 75 MG TAB PO SCH (08:49)
[2018-03-19] MEDS: Fluticasone Propionate Nasal Spray 16 gm Bottle NASAL SCH ×2 (08:49→21:10)
[2018-03-19] MEDS: DULoxetine 30 MG CAP PO SCH (08:49)
[2018-03-19] MEDS: Famotidine 20 MG TAB PO SCH ×2 (08:49→21:09)
[2018-03-19] MEDS: Enoxaparin Sodium 30 MG/0.3 ML SYRINGE SC SCH (08:49)
[2018-03-19] MEDS: Empagliflozin [Jardiance] 25 MG PO SCH (08:51)
[2018-03-19] MEDS: ONGLYZA 5 MG PO SCH (08:51)
[2018-03-19] MEDS: HumaLOG 300 UNITS/3 ML VIAL SC PRN (12:16)
[2018-03-19] MEDS: traMADol HCl 50 MG TAB PO PRN ×2 (14:57→21:09)
[2018-03-19] MEDS: Acetaminophen 325 MG TAB PO PRN (21:08)
[2018-03-19] MEDS: traZODone HCl 50 MG TAB PO PRN (21:08)
[2018-03-19] MEDS: Atorvastatin Calcium 10 MG TAB PO SCH (21:10)
[2018-03-19] MEDS: Lantus 1000 UNITS/10 ML VIAL SC SCH (21:11)
[2018-03-20] MEDS: Levothyroxine Sodium 112 MCG TAB PO SCH (05:30)
[2018-03-20] MEDS: Acetaminophen 325 MG TAB PO PRN ×2 (05:30→14:49)
[2018-03-20] MEDS: Famotidine 20 MG TAB PO SCH ×2 (08:19→21:11)
[2018-03-20] MEDS: DULoxetine 30 MG CAP PO SCH (08:19)
[2018-03-20] MEDS: Fish Oil 1,000 MG CAP PO SCH (08:19)
[2018-03-20] MEDS: ONGLYZA 5 MG PO SCH (08:20)
[2018-03-20] MEDS: Clopidogrel Bisulfate 75 MG TAB PO SCH (08:20)
[2018-03-20] MEDS: Empagliflozin [Jardiance] 25 MG PO SCH (08:20)
[2018-03-20] MEDS: Fluticasone Propionate Nasal Spray 16 gm Bottle NASAL SCH ×2 (08:21→21:12)
[2018-03-20] MEDS: Enoxaparin Sodium 30 MG/0.3 ML SYRINGE SC SCH (08:21)
[2018-03-20] MEDS: traMADol HCl 50 MG TAB PO PRN (21:11)
[2018-03-20] MEDS: Atorvastatin Calcium 10 MG TAB PO SCH (21:11)
[2018-03-20] MEDS: Lantus 1000 UNITS/10 ML VIAL SC SCH (21:17)
[2018-03-21] MEDS: Levothyroxine Sodium 112 MCG TAB PO SCH (05:18)
[2018-03-21] MEDS: HumaLOG 300 UNITS/3 ML VIAL SC PRN (08:38)
[2018-03-21] MEDS: traMADol HCl 50 MG TAB PO PRN ×2 (08:47→20:48)
[2018-03-21] MEDS: DULoxetine 30 MG CAP PO SCH (08:48)
[2018-03-21] MEDS: Empagliflozin [Jardiance] 25 MG PO SCH (08:49)
[2018-03-21] MEDS: Famotidine 20 MG TAB PO SCH ×2 (08:49→20:50)
[2018-03-21] MEDS: Clopidogrel Bisulfate 75 MG TAB PO SCH (08:49)
[2018-03-21] MEDS: Fish Oil 1,000 MG CAP PO SCH (08:49)
[2018-03-21] MEDS: Fluticasone Propionate Nasal Spray 16 gm Bottle NASAL SCH ×2 (08:50→20:50)
[2018-03-21] MEDS: ONGLYZA 5 MG PO SCH (08:50)
[2018-03-21] MEDS: Enoxaparin Sodium 30 MG/0.3 ML SYRINGE SC SCH (08:54)
[2018-03-21] MEDS: Acetaminophen 325 MG TAB PO PRN (14:00)
[2018-03-21] MEDS: Atorvastatin Calcium 10 MG TAB PO SCH (20:50)
[2018-03-21] MEDS: traZODone HCl 50 MG TAB PO PRN (20:57)
[2018-03-21] MEDS: Lantus 1000 UNITS/10 ML VIAL SC SCH (21:15)
[2018-03-22] MEDS: Acetaminophen 325 MG TAB PO PRN ×2 (01:51→20:47)
[2018-03-22] MEDS: Levothyroxine Sodium 112 MCG TAB PO SCH (06:13)
[2018-03-22] MEDS: Fluticasone Propionate Nasal Spray 16 gm Bottle NASAL SCH ×2 (08:15→20:46)
[2018-03-22] MEDS: Fish Oil 1,000 MG CAP PO SCH (08:16)
[2018-03-22] MEDS: Famotidine 20 MG TAB PO SCH ×2 (08:16→20:46)
[2018-03-22] MEDS: Clopidogrel Bisulfate 75 MG TAB PO SCH (08:16)
[2018-03-22] MEDS: DULoxetine 30 MG CAP PO SCH (08:16)
[2018-03-22] MEDS: Enoxaparin Sodium 30 MG/0.3 ML SYRINGE SC SCH (08:17)
[2018-03-22] MEDS: Empagliflozin [Jardiance] 25 MG PO SCH (08:17)
[2018-03-22] MEDS: ONGLYZA 5 MG PO SCH (08:18)
[2018-03-22] MEDS: HumaLOG 300 UNITS/3 ML VIAL SC PRN (16:55)
[2018-03-22] MEDS: Atorvastatin Calcium 10 MG TAB PO SCH (20:45)
[2018-03-22] MEDS: traMADol HCl 50 MG TAB PO PRN (20:47)
[2018-03-22] MEDS: traZODone HCl 50 MG TAB PO PRN (20:47)
[2018-03-22] MEDS: Lantus 1000 UNITS/10 ML VIAL SC SCH (20:48)
[2018-03-23] MEDS: Levothyroxine Sodium 112 MCG TAB PO SCH (05:22)
[2018-03-23] MEDS: Fluticasone Propionate Nasal Spray 16 gm Bottle NASAL SCH ×2 (08:24→21:13)
[2018-03-23] MEDS: Enoxaparin Sodium 30 MG/0.3 ML SYRINGE SC SCH (08:24)
[2018-03-23] MEDS: Fish Oil 1,000 MG CAP PO SCH (08:25)
[2018-03-23] MEDS: ONGLYZA 5 MG PO SCH (08:25)
[2018-03-23] MEDS: DULoxetine 30 MG CAP PO SCH (08:25)
[2018-03-23] MEDS: Empagliflozin [Jardiance] 25 MG PO SCH (08:26)
[2018-03-23] MEDS: Clopidogrel Bisulfate 75 MG TAB PO SCH (08:26)
[2018-03-23] MEDS: Famotidine 20 MG TAB PO SCH ×2 (08:27→21:13)
[2018-03-23] MEDS: Acetaminophen 325 MG TAB PO PRN ×2 (14:29→21:15)
[2018-03-23] MEDS: Lantus 1000 UNITS/10 ML VIAL SC SCH (21:09)
[2018-03-23] MEDS: Atorvastatin Calcium 10 MG TAB PO SCH (21:13)
[2018-03-23] MEDS: traMADol HCl 50 MG TAB PO PRN (21:15)
[2018-03-23] MEDS: traZODone HCl 50 MG TAB PO PRN (21:15)
[2018-03-23 21:31] VITALS: BMI 26.7
[2018-03-24] MEDS: traMADol HCl 50 MG TAB PO PRN ×2 (03:29→19:06)
[2018-03-24] MEDS: Levothyroxine Sodium 112 MCG TAB PO SCH (05:48)
[2018-03-24] MEDS: Fluticasone Propionate Nasal Spray 16 gm Bottle NASAL SCH ×2 (09:01→20:12)
[2018-03-24] MEDS: Empagliflozin [Jardiance] 25 MG PO SCH (09:03)
[2018-03-24] MEDS: Clopidogrel Bisulfate 75 MG TAB PO SCH (09:05)
[2018-03-24] MEDS: Famotidine 20 MG TAB PO SCH ×2 (09:05→20:08)
[2018-03-24] MEDS: ONGLYZA 5 MG PO SCH (09:05)
[2018-03-24] MEDS: Enoxaparin Sodium 30 MG/0.3 ML SYRINGE SC SCH (09:05)
[2018-03-24] MEDS: Fish Oil 1,000 MG CAP PO SCH (09:05)
[2018-03-24] MEDS: DULoxetine 30 MG CAP PO SCH (09:05)
[2018-03-24] MEDS: HumaLOG 300 UNITS/3 ML VIAL SC PRN (17:00)
[2018-03-24] MEDS: traZODone HCl 50 MG TAB PO PRN (20:08)
[2018-03-24] MEDS: Acetaminophen 325 MG TAB PO PRN (20:08)
[2018-03-24] MEDS: Atorvastatin Calcium 10 MG TAB PO SCH (20:10)
[2018-03-24] MEDS: Lantus 1000 UNITS/10 ML VIAL SC SCH (20:28)
[2018-03-25] MEDS: Levothyroxine Sodium 112 MCG TAB PO SCH (05:37)
[2018-03-25] MEDS: HumaLOG 300 UNITS/3 ML VIAL SC PRN ×3 (08:10→17:11)
[2018-03-25] MEDS: Enoxaparin Sodium 30 MG/0.3 ML SYRINGE SC SCH (08:32)
[2018-03-25] MEDS: Fluticasone Propionate Nasal Spray 16 gm Bottle NASAL SCH ×2 (08:33→21:26)
[2018-03-25] MEDS: DULoxetine 30 MG CAP PO SCH (08:34)
[2018-03-25] MEDS: Clopidogrel Bisulfate 75 MG TAB PO SCH (08:34)
[2018-03-25] MEDS: Fish Oil 1,000 MG CAP PO SCH (08:34)
[2018-03-25] MEDS: ONGLYZA 5 MG PO SCH (08:34)
[2018-03-25] MEDS: Famotidine 20 MG TAB PO SCH ×2 (08:34→21:24)
[2018-03-25] MEDS: Empagliflozin [Jardiance] 25 MG PO SCH (08:35)
[2018-03-25] MEDS: Acetaminophen 325 MG TAB PO PRN ×2 (14:32→21:23)
[2018-03-25] MEDS: traMADol HCl 50 MG TAB PO PRN (19:22)
[2018-03-25] MEDS: traZODone HCl 50 MG TAB PO PRN (21:23)
[2018-03-25] MEDS: Lantus 1000 UNITS/10 ML VIAL SC SCH (21:25)
[2018-03-25] MEDS: Atorvastatin Calcium 10 MG TAB PO SCH (21:25)
[2018-03-26] MEDS: Levothyroxine Sodium 112 MCG TAB PO SCH (04:59)
[2018-03-26] MEDS: Fish Oil 1,000 MG CAP PO SCH (08:39)
[2018-03-26] MEDS: DULoxetine 30 MG CAP PO SCH (08:40)
[2018-03-26] MEDS: Enoxaparin Sodium 30 MG/0.3 ML SYRINGE SC SCH (08:40)
[2018-03-26] MEDS: Clopidogrel Bisulfate 75 MG TAB PO SCH (08:40)
[2018-03-26] MEDS: Famotidine 20 MG TAB PO SCH ×2 (08:41→21:06)
[2018-03-26] MEDS: Fluticasone Propionate Nasal Spray 16 gm Bottle NASAL SCH ×2 (08:42→21:02)
[2018-03-26] MEDS: Empagliflozin [Jardiance] 25 MG PO SCH (08:42)
[2018-03-26] MEDS: ONGLYZA 5 MG PO SCH (08:42)
[2018-03-26] MEDS: traZODone HCl 50 MG TAB PO PRN (21:03)
[2018-03-26] MEDS: Atorvastatin Calcium 10 MG TAB PO SCH (21:03)
[2018-03-26] MEDS: Lantus 1000 UNITS/10 ML VIAL SC SCH (21:07)
[2018-03-26] MEDS: traMADol HCl 50 MG TAB PO PRN (22:08)
[2018-03-27] MEDS: Levothyroxine Sodium 112 MCG TAB PO SCH (05:59)
[2018-03-27] MEDS: Fluticasone Propionate Nasal Spray 16 gm Bottle NASAL SCH ×2 (08:33→21:09)
[2018-03-27] MEDS: DULoxetine 30 MG CAP PO SCH (08:34)
[2018-03-27] MEDS: traMADol HCl 50 MG TAB PO PRN ×2 (08:35→20:59)
[2018-03-27] MEDS: Clopidogrel Bisulfate 75 MG TAB PO SCH (08:35)
[2018-03-27] MEDS: Fish Oil 1,000 MG CAP PO SCH (08:35)
[2018-03-27] MEDS: Famotidine 20 MG TAB PO SCH ×2 (08:36→20:59)
[2018-03-27] MEDS: HumaLOG 300 UNITS/3 ML VIAL SC PRN (08:36)
[2018-03-27] MEDS: ONGLYZA 5 MG PO SCH (08:38)
[2018-03-27] MEDS: Enoxaparin Sodium 30 MG/0.3 ML SYRINGE SC SCH (08:39)
[2018-03-27] MEDS: Empagliflozin [Jardiance] 25 MG PO SCH (08:39)
[2018-03-27] MEDS: Acetaminophen 325 MG TAB PO PRN (19:16)
[2018-03-27] MEDS: Atorvastatin Calcium 10 MG TAB PO SCH (20:57)
[2018-03-27] MEDS: traZODone HCl 50 MG TAB PO PRN (21:00)
[2018-03-27] MEDS: Lantus 1000 UNITS/10 ML VIAL SC SCH (21:01)
[2018-03-27] MEDS ORDERED: Sodium Chloride 0.9% 250 ML 250 ML ONE (21:29)
[2018-03-28] MEDS: Levothyroxine Sodium 112 MCG TAB PO SCH (05:49)
[2018-03-28] MEDS: Famotidine 20 MG TAB PO SCH ×2 (08:27→20:56)
[2018-03-28] MEDS: Fish Oil 1,000 MG CAP PO SCH (08:28)
[2018-03-28] MEDS: Fluticasone Propionate Nasal Spray 16 gm Bottle NASAL SCH ×2 (08:28→21:00)
[2018-03-28] MEDS: Clopidogrel Bisulfate 75 MG TAB PO SCH (08:28)
[2018-03-28] MEDS: DULoxetine 30 MG CAP PO SCH (08:28)
[2018-03-28] MEDS: Empagliflozin [Jardiance] 25 MG PO SCH (08:29)
[2018-03-28] MEDS: ONGLYZA 5 MG PO SCH (08:29)
[2018-03-28] MEDS ORDERED: Sodium Chloride Irrig Solution 250 ML BOT ONE (12:00)
[2018-03-28] MEDS: traMADol HCl 50 MG TAB PO PRN ×2 (14:46→20:54)
[2018-03-28] MEDS: Acetaminophen 325 MG TAB PO PRN (14:46)
[2018-03-28] MEDS: traZODone HCl 50 MG TAB PO PRN (20:55)
[2018-03-28] MEDS: Atorvastatin Calcium 10 MG TAB PO SCH (20:56)
[2018-03-28] MEDS: Lantus 1000 UNITS/10 ML VIAL SC SCH (21:02)
[2018-03-29] MEDS: traMADol HCl 50 MG TAB PO PRN ×2 (03:22→22:44)
[2018-03-29] MEDS: Levothyroxine Sodium 112 MCG TAB PO SCH (05:31)
[2018-03-29] MEDS: Empagliflozin [Jardiance] 25 MG PO SCH (08:27)
[2018-03-29] MEDS: ONGLYZA 5 MG PO SCH (08:27)
[2018-03-29] MEDS: Fluticasone Propionate Nasal Spray 16 gm Bottle NASAL SCH ×2 (08:28→20:10)
[2018-03-29] MEDS: Fish Oil 1,000 MG CAP PO SCH (08:28)
[2018-03-29] MEDS: Famotidine 20 MG TAB PO SCH ×2 (08:28→20:08)
[2018-03-29] MEDS: DULoxetine 30 MG CAP PO SCH (08:28)
[2018-03-29] MEDS: Clopidogrel Bisulfate 75 MG TAB PO SCH (08:28)
[2018-03-29] MEDS: Atorvastatin Calcium 10 MG TAB PO SCH (20:08)
[2018-03-29] MEDS: Acetaminophen 325 MG TAB PO PRN (20:09)
[2018-03-29] MEDS: Lantus 1000 UNITS/10 ML VIAL SC SCH (21:00)
[2018-03-29] MEDS: traZODone HCl 50 MG TAB PO PRN (22:47)
[2018-03-30] MEDS: Levothyroxine Sodium 112 MCG TAB PO SCH (06:28)
[2018-03-30 09:25] VITALS: BP 159/90; TEMP 97
[2018-03-30] MEDS: traMADol HCl 50 MG TAB PO PRN (09:50)
[2018-03-30] MEDS: Famotidine 20 MG TAB PO SCH (09:51)
[2018-03-30] MEDS: DULoxetine 30 MG CAP PO SCH (09:51)
[2018-03-30] MEDS: Fish Oil 1,000 MG CAP PO SCH (09:51)
[2018-03-30] MEDS: Clopidogrel Bisulfate 75 MG TAB PO SCH (09:51)
[2018-03-30] MEDS: Fluticasone Propionate Nasal Spray 16 gm Bottle NASAL SCH (09:51)
[2018-03-30] MEDS: ONGLYZA 5 MG PO SCH (09:52)
[2018-03-30] MEDS: Empagliflozin [Jardiance] 25 MG PO SCH (09:52)
[2018-03-30] MEDS: HumaLOG 300 UNITS/3 ML VIAL SC PRN (12:10)
--- NOTE | 2018-04-03 07:24 | DIS ---
DATE OF ADMISSION: 02/24/2018 DATE OF DISCHARGE: 03/30/2018 PRIMARY CARE PHYSICIAN: Dr. Gris Gan. DISCHARGE DISPOSITION: To home. DISCHARGE INSTRUCTIONS: Resume physical therapy with [facility], ambulate with 4-wheel walker at all times. Followup with Orthopedic doctor in 2 weeks. Follow up with primary care doctor in 1 week. DISCHARGE DIAGNOSES: 1. Physical debility, improving. 2. Left intertrochanteric fracture, status post open reduction and internal fixation. 3. Incision infection, resolved. 4. Chronic kidney disease, stage 3. 5. Diabetes type 2. 6. Depression. 7. Hypothyroidism. DISCHARGE MEDICATIONS: 1. Tylenol 650 p.r.n. 2. Tramadol 50 q.6 p.r.n. pain. 3. Levothyroxine 112 mcg daily. 4. Lantus 42 at bedtime. 5. Atorvastatin 40 daily. 6. Ranexa 1000 b.i.d. 7. Cymbalta 60 daily. 8. Jardiance 25 mg 1 q.a.m. 9. Metoprolol 25 daily. 10. Plavix 75 daily. BRIEF HOSPITAL COURSE: Ms. Stephens is a 67-year-old female who was admitted to [place] [facility] for skilled rehabilitation prior to discharge to home. The patient sustained a fall which resulted in a fracture of left intertrochanteric femur. She underwent ORIF and the patient was discharged to [facility] from February 07 to February 24. Subsequently, she was discharged here for continuation of physical therapy. During hospitalization, the patient had about 2 to 3 episodes of falls due to legs giving out and not being compliant with calling for assistance. She never had any injuries during this. Repeat x-rays were done and did not show any acute fractures. Initially, the patient came in with infections to the incision site. She was treated with Bactrim and this significantly improved. The patient was able to follow up with Orthopedic surgeon who took out the salvatore and the patient's incision site healed nicely. The patient progressed nicely with physical therapy. She was able to visit her home on one of the day passes and was able to maneuver in the home without any episodes of falls or lethargy. The patient continued with physical therapy and progressively improved. On the day of discharge, she was able to ambulate 50 foot using a rolling walker and the patient was excited to go back to home. The patient was discharged back to home with her daughter in stable condition and instructions to follow up with orthopedic doctor, primary care doctor, and [facility] to resume physical therapy and occupational therapy. Job ID: [id number] MTDD
== END 2018-03-30 17:40 | disposition home health service (06) | DRG 560 ==
LOC: MADMS 13:25
PROVIDERS: ADMIT Family Medicine; ATTEND Family Medicine
DX: S72.142D Displaced intertrochanteric fracture of left femur, subsequent encounter for closed fracture with routine healing (principal); T81.41XA Infection following a procedure, superficial incisional surgical site, initial encounter; R26.89 Other abnormalities of gait and mobility; I12.9 Hypertensive chronic kidney disease with stage 1 through stage 4 chronic kidney disease, or unspecified chronic kidney disease; N18.3 Chronic kidney disease, stage 3 (moderate); F32.9 Major depressive disorder, single episode, unspecified; E11.22 Type 2 diabetes mellitus with diabetic chronic kidney disease; E11.40 Type 2 diabetes mellitus with diabetic neuropathy, unspecified; E03.9 Hypothyroidism, unspecified; K59.00 Constipation, unspecified; I25.10 Atherosclerotic heart disease of native coronary artery without angina pectoris; B37.2 Candidiasis of skin and nail; Z90.49 Acquired absence of other specified parts of digestive tract; Z95.1 Presence of aortocoronary bypass graft; Z90.710 Acquired absence of both cervix and uterus; Z98.890 Other specified postprocedural states; Z90.10 Acquired absence of unspecified breast and nipple; Z88.5 Allergy status to narcotic agent; Z88.8 Allergy status to other drugs, medicaments and biological substances; Z86.73 Personal history of transient ischemic attack (TIA), and cerebral infarction without residual deficits; Z91.81 History of falling; Z79.899 Other long term (current) drug therapy; Z79.4 Long term (current) use of insulin; Y83.8 Other surgical procedures as the cause of abnormal reaction of the patient, or of later complication, without mention of misadventure at the time of the procedure; W19.XXXD Unspecified fall, subsequent encounter
CPT/HCPCS: 36416; 80048; 81003; 85025; 87070; 87077; 87086; 87186; 87205; G8978-GP-CK; G8979-GP-CJ; G8987-GO-CJ; G8987-GO-CL; G8988-GO-CI; J1650; J1815; J7050; J7070

== ENCOUNTER 2019-04-17 12:40 | Emergency (ER) | payer MEDICARE, BC ==
[2019-04-17 13:21] LABS: #Basophils 0.1 thou/uL (0.0-0.2); #Eosinphils 0.1 thou/uL (0.0-0.7); #Lymphocytes 2.5 thou/uL (1.20-3.40); #Monocytes 0.7 thou/uL (0.11-0.59); #Neutrophils 4.9 thou/uL (1.40-6.50); %Basophils 0.7 % (0.0-1.0); %Eosinophils 1.6 % (0.0-10.0); %Lymphocytes 30.1 % (21.0-51.0); %Monocytes 8.2 % (0.0-10.0); %Neutrophils 59.5 % (42.0-75.0); Hemoglobin 12.8 g/dL (12.0-16.0); Mean Corpuscular HGB CONC 31.2 g/dL (32.0-36.0); Mean Corpuscular Hemoglobin 29.6 pg (27.0-31.0); Mean Corpuscular Volume 94.9 fL (78.0-98.0); Mean Platelet Volume 8.6 fL (7.4-10.4); Platelet Count 241 thou/uL (130-400); RBC Distribution Width 12.5 % (11.5-14.5); Red Blood Cell (RBC) Count 4.33 mill/uL (4.20-5.40); White Blood Cell (WBC) Count 8.2 thou/uL (4.8-10.8)
[2019-04-17 13:30] LABS: Prothrombin Time 12.7 SEC (12.0-14.7)
[2019-04-17 13:41] LABS: ALT (SGPT) 15 U/L (8-55); AST (SGOT) 18 U/L (5-34); Albumin 4.2 g/dL (3.4-4.8); Alkaline Phosphatase 74 U/L (40-110); Anion Gap 13 mmol/L (10-20); BUN (Urea Nitrogen) 17 mg/dL (9.8-20.1); Bilirubin, Total 1.1 mg/dL (0.2-1.2); Calc. Creatinine Clearance 0 mL/min (70-130); Calcium 8.9 mg/dL (7.8-10.44); Carbon Dioxide 26 mmol/L (23-31); Chloride 100 mmol/L (98-107); Estimated GFR-MDRD 42; Globulin 2.8 g/dL (2.4-3.5); Glucose 135 mg/dL (80-115); Potassium 4.9 mmol/L (3.5-5.1); Sodium 134 mmol/L (136-145)
--- NOTE | 2019-04-17 13:54 | CT ---
CT Brain WO Con: 04/17/2019 1:03 PM CLINICAL HISTORY: Fall. COMPARISON: None. FINDINGS: Hemorrhage: None. Ventricular system: Prominent in size likely due to mild parenchymal atrophy. Cerebral parenchyma: Microvascular ischemic disease Midline shift: None. Mass: No mass effect. Calvarium: Normal. Visualized Paranasal sinuses: Clear. IMPRESSION: No acute intracranial abnormalities.
--- NOTE | 2019-04-17 13:58 | CT ---
CT Cervical Spine WO Con Indication: Pain/Injury COMPARISON: None FINDINGS: Acute fracture/subluxation: None Spinal alignment: No acute malalignment. Vertebral body heights: Maintained. Cervical spine degenerative change: Mild IMPRESSION: No acute osseous abnormality.
[2019-04-17 16:20] LABS: Bilirubin Negative (Negative); Blood, Urine Negative (Negative); Clarity Clear (Clear); Glucose, Urine (Dipstick) 500 mg/dL (Negative); Leukocyte Negative (Negative); Nitrite Negative (Negative); Protein, Urine (Dipstick) Negative (Neg-Trace); Urobilinogen 0.2 mg/dL (Less than 2)
== END 2019-04-17 16:25 | disposition home or self-care (01) ==
LOC: MADERS 12:40
DX: S01.01XA Laceration without foreign body of scalp, initial encounter (principal); E03.9 Hypothyroidism, unspecified; E78.5 Hyperlipidemia, unspecified; I25.10 Atherosclerotic heart disease of native coronary artery without angina pectoris; E11.9 Type 2 diabetes mellitus without complications; I10 Essential (primary) hypertension; F32.9 Major depressive disorder, single episode, unspecified; Z79.899 Other long term (current) drug therapy; Z95.5 Presence of coronary angioplasty implant and graft; Z86.73 Personal history of transient ischemic attack (TIA), and cerebral infarction without residual deficits; Z79.01 Long term (current) use of anticoagulants; Z79.82 Long term (current) use of aspirin; Z79.4 Long term (current) use of insulin; W18.30XA Fall on same level, unspecified, initial encounter
CPT/HCPCS: 12001; 36415; 70450; 72125; 80053; 81003; 85025; 85610; L0120

== ENCOUNTER 2020-01-19 04:09 | Emergency (ER) | payer MEDICARE, BC ==
[2020-01-19 04:49] LABS: #Basophils 0.1 thou/uL (0.0-0.2); #Eosinphils 0.3 thou/uL (0.0-0.7); #Lymphocytes 2.7 thou/uL (1.20-3.40); #Monocytes 0.9 thou/uL (0.11-0.59); #Neutrophils 8.3 thou/uL (1.40-6.50); %Basophils 0.9 % (0.0-1.0); %Eosinophils 2.1 % (0.0-10.0); %Lymphocytes 21.8 % (21.0-51.0); %Monocytes 7.3 % (0.0-10.0); %Neutrophils 67.9 % (42.0-75.0); Hemoglobin 13.4 g/dL (12.0-16.0); Mean Corpuscular HGB CONC 34.6 g/dL (32.0-36.0); Mean Corpuscular Hemoglobin 31.3 pg (27.0-31.0); Mean Corpuscular Volume 90.4 fL (78.0-98.0); Mean Platelet Volume 8.2 fL (7.4-10.4); Platelet Count 221 thou/uL (130-400); RBC Distribution Width 11.4 % (11.5-14.5); Red Blood Cell (RBC) Count 4.29 mill/uL (4.20-5.40); White Blood Cell (WBC) Count 12.2 thou/uL (4.8-10.8)
[2020-01-19 04:52] LABS: INR-International Normal Ratio 0.9; Prothrombin Time 12.6 sec (12.0-14.7)
[2020-01-19] MEDS ORDERED: Azithromycin 500 MG VIAL ONE (04:54)
[2020-01-19] MEDS ORDERED: Sodium Chloride 0.9% 250 ML 250 ML ONE (04:54)
[2020-01-19] MEDS ORDERED: Sodium Chloride 0.9% 100 ML ONE (04:54)
[2020-01-19] MEDS ORDERED: cefTRIAXone\\ROCEPHIN 1 GM VIAL ONE (04:54)
[2020-01-19 05:03] LABS: ALT (SGPT) 17 U/L (8-55); AST (SGOT) 19 U/L (5-34); Albumin 3.9 g/dL (3.4-4.8); Alkaline Phosphatase 86 U/L (40-110); Anion Gap 17 mmol/L (10-20); BUN (Urea Nitrogen) 14 mg/dL (9.8-20.1); Bilirubin, Total 0.9 mg/dL (0.2-1.2); Calc. Creatinine Clearance 0 mL/min (70-130); Calcium 8.6 mg/dL (7.8-10.44); Carbon Dioxide 23 mmol/L (23-31); Chloride 93 mmol/L (98-107); Estimated GFR-MDRD 59; Globulin 2.9 g/dL (2.4-3.5); Glucose 165 mg/dL (80-115); Potassium 4.5 mmol/L (3.5-5.1); Protein, Total 6.8 g/dL (6.0-8.3); Sodium 128 mmol/L (136-145)
[2020-01-19] MEDS ORDERED: Furosemide 40 MG/4 ML VIAL ONE (05:26)
--- NOTE | 2020-01-19 10:02 | RAD ---
CHEST 1 VIEW: Date: 01/19/2020 INDICATION: History of shortness of breath. COMPARISON: Prior exam dated 06/09/2017. FINDINGS: There is cardiomegaly, pulmonary vascular congestion, and bilateral interstitial edema. There is an i nfrahilar air space opacity. There is a tiny pleural effusion. There is a right hemiarthroplasty of t he shoulder. Prior CABG change. There is diffuse osteopenia. IMPRESSION: Findings suspicious for CHF. There are some infrahilar opacities bilaterally suspicious for edema; ho wever, pneumonia could have a similar appearance. Continued radiographic follow-up is recommended. POS: [facility]
== END 2020-01-19 05:56 | disposition short-term general hospital (02) ==
LOC: MADERS 04:09
DX: R06.02 Shortness of breath (principal); E87.1 Hypo-osmolality and hyponatremia; E11.9 Type 2 diabetes mellitus without complications; I10 Essential (primary) hypertension; I20.9 Angina pectoris, unspecified; E03.9 Hypothyroidism, unspecified; E78.5 Hyperlipidemia, unspecified; F32.9 Major depressive disorder, single episode, unspecified; Z79.4 Long term (current) use of insulin; Z86.73 Personal history of transient ischemic attack (TIA), and cerebral infarction without residual deficits; Z79.899 Other long term (current) drug therapy; Z79.01 Long term (current) use of anticoagulants
CPT/HCPCS: 71045; 80053; 83605; 83880; 84484; 85025; 85610; 86140; 93005; 96365; 96367; 96375; J0456; J0696; J1940; J3490; J7050

== ENCOUNTER 2020-04-21 15:48 | Inpatient (IN) | payer MEDICARE, BC ==
[2020-04-21] MEDS ORDERED: Dextrose 50% Abboject 50 ML SYRINGE SLOW IVP PRN (19:30)
[2020-04-21] MEDS: Fish Oil 1,000 MG CAP PO SCH (21:25)
[2020-04-21] MEDS: Cefdinir 300 MG CAP PO SCH (21:25)
[2020-04-21] MEDS: HumaLOG 300 UNITS/3 ML VIAL SC PRN (22:02)
[2020-04-21] MEDS: Acetaminophen 325 MG TAB PO PRN (22:12)
[2020-04-22] MEDS: Levothyroxine Sodium 112 MCG TAB PO SCH (05:03)
[2020-04-22 05:46] LABS: #Basophils 0.1 thou/uL (0.0-0.2); #Eosinphils 0.2 thou/uL (0.0-0.7); #Monocytes 0.7 thou/uL (0.11-0.59); #Neutrophils 5.5 thou/uL (1.40-6.50); %Lymphocytes 23.2 % (21.0-51.0); %Monocytes 8.3 % (0.0-10.0); %Neutrophils 65.5 % (42.0-75.0); Hemoglobin 13.6 g/dL (12.0-16.0); Mean Corpuscular HGB CONC 32.7 g/dL (32.0-36.0); Mean Corpuscular Hemoglobin 30.3 pg (27.0-31.0); Mean Corpuscular Volume 92.4 fL (78.0-98.0); Mean Platelet Volume 7.9 fL (7.4-10.4); Platelet Count 329 thou/uL (130-400); RBC Distribution Width 11.9 % (11.5-14.5); Red Blood Cell (RBC) Count 4.48 mill/uL (4.20-5.40); White Blood Cell (WBC) Count 8.4 thou/uL (4.8-10.8)
[2020-04-22 05:55] LABS: Anion Gap 16 mmol/L (10-20); BUN (Urea Nitrogen) 20 mg/dL (9.8-20.1); Calc. Creatinine Clearance 69 mL/min (70-130); Calcium 8.2 mg/dL (7.8-10.44); Carbon Dioxide 23 mmol/L (23-31); Chloride 100 mmol/L (98-107); Glucose 212 mg/dL (80-115); Potassium 4.5 mmol/L (3.5-5.1); Sodium 134 mmol/L (136-145)
[2020-04-22] MEDS: Furosemide 20 MG TAB PO SCH (08:31)
[2020-04-22] MEDS: Dexamethasone 4 MG TAB PO SCH (08:41)
[2020-04-22] MEDS: Fish Oil 1,000 MG CAP PO SCH ×2 (08:41→20:54)
[2020-04-22] MEDS: Cefdinir 300 MG CAP PO SCH ×2 (08:41→20:54)
[2020-04-22] MEDS: Clopidogrel Bisulfate 75 MG TAB PO SCH (08:41)
[2020-04-22] MEDS: Escitalopram Oxalate 10 mg Tablet PO SCH (08:41)
[2020-04-22] MEDS: Trospium 20 MG TAB PO SCH ×2 (08:42→20:55)
[2020-04-22] MEDS: Zinc Sulfate 220 MG CAP PO SCH (08:42)
[2020-04-22] MEDS: HumaLOG 300 UNITS/3 ML VIAL SC PRN ×4 (08:47→21:36)
[2020-04-22] MEDS ORDERED: Enoxaparin Sodium 40 MG/0.4 ML SYRINGE SC SCH (09:00)
[2020-04-22] MEDS ORDERED: FLU VACC QS2020-21(65YR UP)/PF 240 MCG/0.7 ML SYRINGE IM ONE (12:45)
--- NOTE | 2020-04-22 21:36 | HP ---
HISTORY OF PRESENT ILLNESS: The patient is a 69-year-old female who was admitted to outside hospital for COVID-19 pneumonia and acute hypoxic respiratory failure secondary to this. She was treated with remdesivir and was initiated on Decadron and did well with this. She was treated with supplemental oxygen, which she was successfully able to be weaned off. The decision was made to transfer patient for further care home and rehabilitation. At this time, the patient is doing well. She has no complaints aside from fatigue. She denies any shortness of breath or chest pain at this time. PAST MEDICAL HISTORY: 1. Coronary artery disease. 2. Diabetes mellitus. 3. Depression. 4. Hypothyroidism. PAST SURGICAL HISTORY: 1. Left hip replacement. 2. Colonoscopy with polypectomy. 3. Right eye cataract surgery. 4. Cardiac catheterization and PTCA with multiple stents. 5. Right bunionectomy. 6. Right shoulder replacement. 7. Breast biopsy. 8. Cholecystectomy. 9. Breast lump excision. ALLERGIES: 1. ASPIRIN. 2. OXYCODONE. CURRENT MEDICATIONS: 1. Furosemide 20 mg p.o. daily. 2. Lexapro 30 mg p.o. daily. 3. Tylenol 650 mg p.o. q.4 hours p.r.n. 4. Tolterodine 2 mg p.o. daily. 5. Levothyroxine 112 mcg p.o. q.a.m. 6. Lipitor 40 mg p.o. at bedtime. 7. Ranexa 1000 mg p.o. b.i.d. 8. Lovaza 2 g p.o. b.i.d. 9. Zinc sulfate 220 mg p.o. daily. 10. Plavix 75 mg p.o. daily. 11. Toprol-XL 25 mg p.o. b.i.d. SOCIAL HISTORY: The patient lives at home by herself. The patient denies smoking, alcohol, and drug use. The patient is mostly wheelchair bound and is able to transfer herself from bed to chair. She does have family who is able to look in on her and a sister was running errand. FAMILY HISTORY: Patient's brother has a history of diabetes and Alzheimer's. The patient's mother currently is , but had a history of heart disease, diabetes, and hypertension. REVIEW OF SYSTEMS: GENERAL: Patient denies fever, chills, night sweats. EYES: Patient denies vision changes and denied pain. SKIN: Patient denies rashes or lesions. CARDIOVASCULAR: Patient denies chest pain, palpitations. RESPIRATORY: Patient denies shortness of breath. Reports occasional cough. ABDOMEN: Patient denies nausea, vomiting. EXTREMITIES: Patient denies swelling. NEUROLOGICAL: Patient denies numbness or tingling. PHYSICAL EXAMINATION: VITALS: Blood pressure 100/56, temperature 98.1, pulse 61, respirations 18, oxygen 96% on room air. GENERAL: Patient is alert and oriented x3. She is in no apparent distress. HEENT: Normocephalic, atraumatic. Extraocular muscles intact. Moist mucous membranes. LUNGS: Clear to auscultation bilaterally. No wheezes, crackles, rhonchi. CARDIOVASCULAR: Regular rate and rhythm. No murmurs, rubs, or gallops. ABDOMEN: Soft and nontender to palpation. No organomegaly. EXTREMITIES: Normal bulk and tone. No cyanosis or peripheral edema. NEUROLOGICAL: Cranial nerves 2-12 intact grossly. No focal deficits. PSYCHIATRIC: Appropriate mood and affect. ASSESSMENT AND PLAN: 1. COVID-19 pneumonia, resolved. Symptoms began on April 06. 2. Physical debility and deconditioning, secondary to prolonged hospitalization and COVID pneumonia. 3. Depression. 4. Coronary artery disease. 5. Hypothyroidism. 6. Hyperlipidemia. PLAN: 1. We will admit patient for continued care home and physical therapy and occupational therapy to assist with strengthening and assistance with performing ADLs. We will continue isolation precautions for 20 days from symptom onset, which isolation precaution should on April 26, 2020. From Respiratory standpoint, patient is completely stable. The patient was started on empiric antibiotics during her hospitalization on April 15 and has been afebrile. White count is down and these were continued, although the indication is not completely clear. 2. Regarding patient's history of diabetes, the patient states that she was on a type of insulin, but she is not sure which kind. We are attempting to clarify the patient's home medication regimen with her daughter. 3. We will continue to monitor patient's blood pressure and vitals. Blood pressure was slightly low today. We will continue to monitor this as well. Job ID: [id number] [facility]
[2020-04-23] MEDS: Levothyroxine Sodium 112 MCG TAB PO SCH (05:22)
[2020-04-23] MEDS: Cefdinir 300 MG CAP PO SCH ×2 (09:29→20:24)
[2020-04-23] MEDS: Trospium 20 MG TAB PO SCH ×2 (09:29→20:25)
[2020-04-23] MEDS: Zinc Sulfate 220 MG CAP PO SCH (09:30)
[2020-04-23] MEDS: Clopidogrel Bisulfate 75 MG TAB PO SCH (09:30)
[2020-04-23] MEDS: Escitalopram Oxalate 10 mg Tablet PO SCH (09:30)
[2020-04-23] MEDS: Dexamethasone 4 MG TAB PO SCH (09:31)
[2020-04-23] MEDS: Furosemide 20 MG TAB PO SCH (09:31)
[2020-04-23] MEDS: Fish Oil 1,000 MG CAP PO SCH ×2 (09:31→20:24)
[2020-04-23] MEDS: HumaLOG 300 UNITS/3 ML VIAL SC PRN ×4 (09:32→23:29)
[2020-04-23] MEDS: Lantus 1000 UNITS/10 ML VIAL SC SCH (20:25)
[2020-04-24] MEDS: Levothyroxine Sodium 112 MCG TAB PO SCH (05:06)
[2020-04-24] MEDS: Zinc Sulfate 220 MG CAP PO SCH (09:47)
[2020-04-24] MEDS: Trospium 20 MG TAB PO SCH ×2 (09:47→20:48)
[2020-04-24] MEDS: Cefdinir 300 MG CAP PO SCH ×2 (09:47→20:48)
[2020-04-24] MEDS: Fish Oil 1,000 MG CAP PO SCH ×2 (09:47→20:48)
[2020-04-24] MEDS: Furosemide 20 MG TAB PO SCH (09:48)
[2020-04-24] MEDS: Clopidogrel Bisulfate 75 MG TAB PO SCH (09:48)
[2020-04-24] MEDS: Dexamethasone 4 MG TAB PO SCH (09:48)
[2020-04-24] MEDS: Escitalopram Oxalate 10 mg Tablet PO SCH (09:48)
[2020-04-24] MEDS: HumaLOG 300 UNITS/3 ML VIAL SC PRN ×4 (10:13→21:19)
[2020-04-24] MEDS: Lantus 1000 UNITS/10 ML VIAL SC SCH (21:18)
[2020-04-24] MEDS ORDERED: Lantus 1000 UNITS/10 ML VIAL SC SCH (23:00)
[2020-04-25] MEDS: Levothyroxine Sodium 112 MCG TAB PO SCH (06:14)
[2020-04-25] MEDS: Zinc Sulfate 220 MG CAP PO SCH (09:33)
[2020-04-25] MEDS: Escitalopram Oxalate 10 mg Tablet PO SCH (09:33)
[2020-04-25] MEDS: Trospium 20 MG TAB PO SCH ×2 (09:33→22:17)
[2020-04-25] MEDS: Fish Oil 1,000 MG CAP PO SCH ×2 (09:33→22:17)
[2020-04-25] MEDS: Cefdinir 300 MG CAP PO SCH ×2 (09:34→22:17)
[2020-04-25] MEDS: Furosemide 20 MG TAB PO SCH (09:34)
[2020-04-25] MEDS: Dexamethasone 4 MG TAB PO SCH (09:34)
[2020-04-25] MEDS: HumaLOG 300 UNITS/3 ML VIAL SC PRN ×4 (09:34→22:19)
[2020-04-25] MEDS: Clopidogrel Bisulfate 75 MG TAB PO SCH (09:34)
[2020-04-25] MEDS: Acetaminophen 325 MG TAB PO PRN (17:03)
[2020-04-25] MEDS ORDERED: Lantus 1000 UNITS/10 ML VIAL SC SCH ×2 (21:00)
[2020-04-26] MEDS: Levothyroxine Sodium 112 MCG TAB PO SCH (06:04)
[2020-04-26] MEDS: Dexamethasone 4 MG TAB PO SCH (08:13)
[2020-04-26] MEDS: Escitalopram Oxalate 10 mg Tablet PO SCH (08:13)
[2020-04-26] MEDS: Clopidogrel Bisulfate 75 MG TAB PO SCH (08:13)
[2020-04-26] MEDS: Furosemide 20 MG TAB PO SCH (08:13)
[2020-04-26] MEDS: Fish Oil 1,000 MG CAP PO SCH ×2 (08:13→22:00)
[2020-04-26] MEDS: Trospium 20 MG TAB PO SCH ×2 (08:14→22:00)
[2020-04-26] MEDS: Cefdinir 300 MG CAP PO SCH ×2 (08:14→22:00)
[2020-04-26] MEDS: Zinc Sulfate 220 MG CAP PO SCH (08:14)
[2020-04-26] MEDS: HumaLOG 300 UNITS/3 ML VIAL SC PRN ×4 (08:34→21:59)
[2020-04-26] MEDS: Lantus 1000 UNITS/10 ML VIAL SC SCH (21:59)
[2020-04-27] MEDS: Levothyroxine Sodium 112 MCG TAB PO SCH (05:47)
[2020-04-27] MEDS: Zinc Sulfate 220 MG CAP PO SCH (08:08)
[2020-04-27] MEDS: Furosemide 20 MG TAB PO SCH (08:08)
[2020-04-27] MEDS: Escitalopram Oxalate 10 mg Tablet PO SCH (08:09)
[2020-04-27] MEDS: Amlodipine 5 MG TAB PO SCH (08:09)
[2020-04-27] MEDS: Fish Oil 1,000 MG CAP PO SCH ×2 (08:09→21:08)
[2020-04-27] MEDS: Trospium 20 MG TAB PO SCH ×2 (08:09→21:08)
[2020-04-27] MEDS: Cefdinir 300 MG CAP PO SCH ×2 (08:09→21:08)
[2020-04-27] MEDS: Clopidogrel Bisulfate 75 MG TAB PO SCH (08:09)
[2020-04-27] MEDS: Dexamethasone 4 MG TAB PO SCH (08:10)
[2020-04-27] MEDS: HumaLOG 300 UNITS/3 ML VIAL SC PRN ×4 (08:10→21:10)
[2020-04-27] MEDS: Lantus 1000 UNITS/10 ML VIAL SC SCH (21:09)
[2020-04-28] MEDS: Levothyroxine Sodium 112 MCG TAB PO SCH (05:30)
[2020-04-28 06:40] LABS: Anion Gap 15 mmol/L (10-20); BUN (Urea Nitrogen) 23 mg/dL (9.8-20.1); Calc. Creatinine Clearance 68 mL/min (70-130); Calcium 8.8 mg/dL (7.8-10.44); Carbon Dioxide 26 mmol/L (23-31); Chloride 99 mmol/L (98-107); Glucose 259 mg/dL (80-115); Potassium 5.7 mmol/L (3.5-5.1); Sodium 134 mmol/L (136-145)
[2020-04-28] MEDS: HumaLOG 300 UNITS/3 ML VIAL SC PRN ×4 (08:21→21:35)
[2020-04-28] MEDS: Fish Oil 1,000 MG CAP PO SCH ×2 (09:28→21:33)
[2020-04-28] MEDS: Trospium 20 MG TAB PO SCH ×2 (09:29→21:34)
[2020-04-28] MEDS: Clopidogrel Bisulfate 75 MG TAB PO SCH (09:29)
[2020-04-28] MEDS: Escitalopram Oxalate 10 mg Tablet PO SCH (09:29)
[2020-04-28] MEDS: Furosemide 20 MG TAB PO SCH (09:29)
[2020-04-28] MEDS: Cefdinir 300 MG CAP PO SCH (09:29)
[2020-04-28] MEDS: Amlodipine 5 MG TAB PO SCH (09:29)
[2020-04-28] MEDS: Dexamethasone 4 MG TAB PO SCH (09:29)
[2020-04-28] MEDS: Zinc Sulfate 220 MG CAP PO SCH (09:29)
[2020-04-28] MEDS ORDERED: Insulin Glargine 40 UNITS in Pre-Filled Syringe 1 EACH SC SCH (21:00)
[2020-04-28] MEDS: Lantus 1000 UNITS/10 ML VIAL SC SCH (21:34)
[2020-04-29] MEDS: Levothyroxine Sodium 112 MCG TAB PO SCH (05:39)
[2020-04-29 06:05] LABS: Anion Gap 15 mmol/L (10-20); BUN (Urea Nitrogen) 20 mg/dL (9.8-20.1); Calc. Creatinine Clearance 72 mL/min (70-130); Calcium 8.5 mg/dL (7.8-10.44); Carbon Dioxide 27 mmol/L (23-31); Chloride 99 mmol/L (98-107); Glucose 224 mg/dL (80-115); Potassium 5.2 mmol/L (3.5-5.1); Sodium 136 mmol/L (136-145)
[2020-04-29] MEDS: Zinc Sulfate 220 MG CAP PO SCH (09:57)
[2020-04-29] MEDS: Amlodipine 5 MG TAB PO SCH (09:57)
[2020-04-29] MEDS: Clopidogrel Bisulfate 75 MG TAB PO SCH (09:57)
[2020-04-29] MEDS: Fish Oil 1,000 MG CAP PO SCH ×2 (09:57→21:12)
[2020-04-29] MEDS: Trospium 20 MG TAB PO SCH ×2 (09:58→21:12)
[2020-04-29] MEDS: Dexamethasone 4 MG TAB PO SCH (09:58)
[2020-04-29] MEDS: Furosemide 20 MG TAB PO SCH (09:58)
[2020-04-29] MEDS: Escitalopram Oxalate 10 mg Tablet PO SCH (09:58)
[2020-04-29] MEDS: HumaLOG 300 UNITS/3 ML VIAL SC PRN ×3 (12:31→21:11)
[2020-04-29] MEDS: Acetaminophen 325 MG TAB PO PRN (18:22)
[2020-04-29] MEDS: Lantus 1000 UNITS/10 ML VIAL SC SCH (21:11)
[2020-04-30] MEDS: Levothyroxine Sodium 112 MCG TAB PO SCH (05:35)
[2020-04-30] MEDS: Acetaminophen 325 MG TAB PO PRN (09:37)
[2020-04-30] MEDS: Fish Oil 1,000 MG CAP PO SCH ×2 (09:38→21:21)
[2020-04-30] MEDS: Trospium 20 MG TAB PO SCH ×2 (09:38→21:21)
[2020-04-30] MEDS: Escitalopram Oxalate 10 mg Tablet PO SCH (09:38)
[2020-04-30] MEDS: Furosemide 20 MG TAB PO SCH (09:39)
[2020-04-30] MEDS: Clopidogrel Bisulfate 75 MG TAB PO SCH (09:39)
[2020-04-30] MEDS: Zinc Sulfate 220 MG CAP PO SCH (09:39)
[2020-04-30] MEDS: Dexamethasone 4 MG TAB PO SCH (09:39)
[2020-04-30] MEDS: Amlodipine 5 MG TAB PO SCH (09:42)
[2020-04-30] MEDS: HumaLOG 300 UNITS/3 ML VIAL SC PRN ×4 (09:42→21:22)
[2020-04-30] MEDS: Lantus 1000 UNITS/10 ML VIAL SC SCH (21:22)
[2020-05-01] MEDS: Levothyroxine Sodium 112 MCG TAB PO SCH (05:38)
[2020-05-01] MEDS: Dexamethasone 4 MG TAB PO SCH (09:19)
[2020-05-01] MEDS: Fish Oil 1,000 MG CAP PO SCH ×2 (09:19→20:38)
[2020-05-01] MEDS: Clopidogrel Bisulfate 75 MG TAB PO SCH (09:20)
[2020-05-01] MEDS: Escitalopram Oxalate 10 mg Tablet PO SCH (09:20)
[2020-05-01] MEDS: Zinc Sulfate 220 MG CAP PO SCH (09:20)
[2020-05-01] MEDS: Trospium 20 MG TAB PO SCH ×2 (09:21→20:38)
[2020-05-01] MEDS: Acetaminophen 325 MG TAB PO PRN ×2 (09:21→22:13)
[2020-05-01] MEDS: Furosemide 20 MG TAB PO SCH (09:21)
[2020-05-01] MEDS: HumaLOG 300 UNITS/3 ML VIAL SC PRN ×3 (12:17→20:42)
[2020-05-01] MEDS: Lantus 1000 UNITS/10 ML VIAL SC SCH (20:39)
[2020-05-02] MEDS: Levothyroxine Sodium 112 MCG TAB PO SCH (05:14)
[2020-05-02] MEDS: HumaLOG 300 UNITS/3 ML VIAL SC PRN ×4 (08:12→21:06)
[2020-05-02] MEDS: Trospium 20 MG TAB PO SCH ×2 (08:13→21:03)
[2020-05-02] MEDS: Clopidogrel Bisulfate 75 MG TAB PO SCH (08:13)
[2020-05-02] MEDS: Fish Oil 1,000 MG CAP PO SCH ×2 (08:13→21:02)
[2020-05-02] MEDS: Acetaminophen 325 MG TAB PO PRN (08:18)
[2020-05-02] MEDS: Escitalopram Oxalate 10 mg Tablet PO SCH (08:18)
[2020-05-02] MEDS: Zinc Sulfate 220 MG CAP PO SCH (08:20)
[2020-05-02] MEDS: Furosemide 20 MG TAB PO SCH (08:20)
[2020-05-02] MEDS: Lantus 1000 UNITS/10 ML VIAL SC SCH (21:05)
[2020-05-03] MEDS: Levothyroxine Sodium 112 MCG TAB PO SCH (05:13)
[2020-05-03] MEDS: Trospium 20 MG TAB PO SCH ×2 (08:40→20:48)
[2020-05-03] MEDS: Escitalopram Oxalate 10 mg Tablet PO SCH (08:42)
[2020-05-03] MEDS: Zinc Sulfate 220 MG CAP PO SCH (08:42)
[2020-05-03] MEDS: Clopidogrel Bisulfate 75 MG TAB PO SCH (08:42)
[2020-05-03] MEDS: Fish Oil 1,000 MG CAP PO SCH ×2 (08:42→20:48)
[2020-05-03] MEDS: Furosemide 20 MG TAB PO SCH (08:42)
[2020-05-03] MEDS: HumaLOG 300 UNITS/3 ML VIAL SC PRN ×3 (12:41→20:52)
[2020-05-03] MEDS: Acetaminophen 325 MG TAB PO PRN (15:00)
[2020-05-03] MEDS: Lantus 1000 UNITS/10 ML VIAL SC SCH (20:50)
[2020-05-04] MEDS: Levothyroxine Sodium 112 MCG TAB PO SCH (05:17)
[2020-05-04] MEDS: Fish Oil 1,000 MG CAP PO SCH ×2 (08:33→20:10)
[2020-05-04] MEDS: Escitalopram Oxalate 10 mg Tablet PO SCH (08:33)
[2020-05-04] MEDS: Zinc Sulfate 220 MG CAP PO SCH (08:33)
[2020-05-04] MEDS: Trospium 20 MG TAB PO SCH ×2 (08:33→20:10)
[2020-05-04] MEDS: Clopidogrel Bisulfate 75 MG TAB PO SCH (08:33)
[2020-05-04] MEDS: Furosemide 20 MG TAB PO SCH (08:34)
[2020-05-04] MEDS: HumaLOG 300 UNITS/3 ML VIAL SC PRN ×3 (08:34→17:16)
[2020-05-04] MEDS: Lantus 1000 UNITS/10 ML VIAL SC SCH (20:09)
[2020-05-04] MEDS: Acetaminophen 325 MG TAB PO PRN (20:10)
[2020-05-05] MEDS: Levothyroxine Sodium 112 MCG TAB PO SCH (05:08)
[2020-05-05] MEDS: HumaLOG 300 UNITS/3 ML VIAL SC PRN ×4 (08:25→20:50)
[2020-05-05] MEDS: Trospium 20 MG TAB PO SCH ×2 (08:26→20:49)
[2020-05-05] MEDS: Zinc Sulfate 220 MG CAP PO SCH (08:26)
[2020-05-05] MEDS: Clopidogrel Bisulfate 75 MG TAB PO SCH (08:26)
[2020-05-05] MEDS: Fish Oil 1,000 MG CAP PO SCH ×2 (08:26→20:49)
[2020-05-05] MEDS: Furosemide 20 MG TAB PO SCH (08:27)
[2020-05-05] MEDS: Escitalopram Oxalate 10 mg Tablet PO SCH (08:27)
[2020-05-05] MEDS: Acetaminophen 325 MG TAB PO PRN (10:53)
--- NOTE | 2020-05-05 18:01 | PRG ---
DATE OF SERVICE: 05/05/2020 SUBJECTIVE: The patient was seen and examined at the bedside. No adverse events overnight. The patient denies shortness of breath or cough. She denies any chest pain or abdominal pain. She states that she has been tolerating physical therapy well. No other complaints per the patient. OBJECTIVE: VITAL SIGNS: Temperature 97.3, pulse 60, respirations 16, oxygen 96% on room air, and blood pressure 130/60. GENERAL: The patient is alert and oriented x3, in no distress. HEENT: Normocephalic and atraumatic. Extraocular muscles intact. CARDIOVASCULAR: Regular rate and rhythm. No murmurs, rubs, or gallops. LUNGS: Clear to auscultation bilaterally with no wheezes, crackles, or rhonchi. EXTREMITIES: Normal bulk and tone. No peripheral edema. SKIN: No rashes, lesions, or cyanosis. NEUROLOGIC: Cranial nerves II through XII intact grossly. PSYCHIATRIC: Appropriate mood, flat affect. ASSESSMENT: The patient is a 69-year-old female with recent history of COVID-19 infection, who presents here for long term and rehabilitation. 1. History of COVID-19 infection. 2. Physical deconditioning, secondary to prolonged hospitalization and COVID pneumonia 3. Gait instability. 4. Diabetes mellitus, type 2. 5. Hypothyroidism. 6. Hypertension. 7. History of coronary artery disease. 8. Likely syndrome of inappropriate antidiuretic hormone. PLAN: We will continue physical therapy and occupational therapy. Per Physical Therapy reports and interdisciplinary team meeting today, the patient apparently has a very difficult time with ambulating and may ambulate for 6 to 10 feet before stopping to take a break. Of note, the patient is mainly wheelchair bound after her hip fracture several years ago. Per Therapy and nursing report, the patient does have poor safety awareness and needs quite a bit of assistance and will likely need placement to assisted living or fdc upon discharge. I attempted to reach out the patient's daughter, but I did not get any answer. We will continue to discuss with the patient and her daughter. DISCHARGE PLAN: The patient is doing well. No further respiratory symptoms regarding her diabetes. Blood sugars have been much improved after discontinuation of oral steroid. We will continue diabetic diet and continue fluid restriction. All of her home medications have been reviewed. Job ID: [id number] [facility]
[2020-05-05] MEDS: Lantus 1000 UNITS/10 ML VIAL SC SCH (20:51)
[2020-05-06] MEDS: Levothyroxine Sodium 112 MCG TAB PO SCH (05:02)
[2020-05-06] MEDS: HumaLOG 300 UNITS/3 ML VIAL SC PRN ×3 (08:19→17:00)
[2020-05-06] MEDS: Escitalopram Oxalate 10 mg Tablet PO SCH (08:21)
[2020-05-06] MEDS: Clopidogrel Bisulfate 75 MG TAB PO SCH (08:21)
[2020-05-06] MEDS: Trospium 20 MG TAB PO SCH ×2 (08:21→20:45)
[2020-05-06] MEDS: Zinc Sulfate 220 MG CAP PO SCH (08:21)
[2020-05-06] MEDS: Furosemide 20 MG TAB PO SCH (08:21)
[2020-05-06] MEDS: Fish Oil 1,000 MG CAP PO SCH ×2 (08:21→20:45)
[2020-05-06] MEDS: Lantus 1000 UNITS/10 ML VIAL SC SCH (21:30)
[2020-05-07] MEDS: Furosemide 20 MG TAB PO SCH (09:41)
[2020-05-07] MEDS: Fish Oil 1,000 MG CAP PO SCH ×2 (09:41→21:31)
[2020-05-07] MEDS: Zinc Sulfate 220 MG CAP PO SCH (09:41)
[2020-05-07] MEDS: Levothyroxine Sodium 112 MCG TAB PO SCH (09:41)
[2020-05-07] MEDS: Trospium 20 MG TAB PO SCH ×2 (09:41→21:31)
[2020-05-07] MEDS: Escitalopram Oxalate 10 mg Tablet PO SCH (09:42)
[2020-05-07] MEDS: HumaLOG 300 UNITS/3 ML VIAL SC PRN ×4 (09:42→21:37)
[2020-05-07] MEDS: Clopidogrel Bisulfate 75 MG TAB PO SCH (09:42)
[2020-05-07] MEDS: Lantus 1000 UNITS/10 ML VIAL SC SCH (21:36)
[2020-05-08] MEDS: Levothyroxine Sodium 112 MCG TAB PO SCH (05:15)
[2020-05-08] MEDS: Escitalopram Oxalate 10 mg Tablet PO SCH (08:35)
[2020-05-08] MEDS: Furosemide 20 MG TAB PO SCH (08:35)
[2020-05-08] MEDS: Zinc Sulfate 220 MG CAP PO SCH (08:35)
[2020-05-08] MEDS: Trospium 20 MG TAB PO SCH ×2 (08:35→20:57)
[2020-05-08] MEDS: Clopidogrel Bisulfate 75 MG TAB PO SCH (08:35)
[2020-05-08] MEDS: Fish Oil 1,000 MG CAP PO SCH ×2 (08:35→20:58)
[2020-05-08] MEDS: HumaLOG 300 UNITS/3 ML VIAL SC PRN ×4 (08:36→20:59)
[2020-05-08 20:26] LABS: Clarity Clear (Clear); Specific Gravity, Urine 1.015 (1.005-1.030)
[2020-05-08 20:27] LABS: Bilirubin Negative (Negative); Blood, Urine Negative (Negative); Glucose, Urine (Dipstick) 250 mg/dL (Negative); Ketone, Urine Negative (Negative); Leukocyte Small (Negative); Nitrite Negative (Negative); Protein, Urine (Dipstick) Negative (Neg-Trace); Urobilinogen 0.2 mg/dL (Less than 2)
[2020-05-08 20:28] LABS: RBC/HPF 0-3 HPF (0-3)
[2020-05-08 20:29] LABS: Bacteria/HPF Rare-Few HPF (None Seen); Mucous/LPF Rare LPF (<2+)
[2020-05-08] MEDS: Acetaminophen 325 MG TAB PO PRN (20:56)
[2020-05-08] MEDS: Lantus 1000 UNITS/10 ML VIAL SC SCH (20:59)
[2020-05-09] MEDS: Levothyroxine Sodium 112 MCG TAB PO SCH (05:26)
[2020-05-09 05:50] LABS: #Eosinphils 0.1 thou/uL (0.0-0.7); #Lymphocytes 1.4 thou/uL (1.20-3.40); #Monocytes 0.5 thou/uL (0.11-0.59); #Neutrophils 4.1 thou/uL (1.40-6.50); %Basophils 0.6 % (0.0-1.0); %Eosinophils 2.1 % (0.0-10.0); %Lymphocytes 22.6 % (21.0-51.0); %Monocytes 8.2 % (0.0-10.0); %Neutrophils 66.4 % (42.0-75.0); Hemoglobin 11.9 g/dL (12.0-16.0); Mean Corpuscular Hemoglobin 29.8 pg (27.0-31.0); Mean Corpuscular Volume 93.3 fL (78.0-98.0); Mean Platelet Volume 7.5 fL (7.4-10.4); Platelet Count 207 thou/uL (130-400); RBC Distribution Width 12.7 % (11.5-14.5); Red Blood Cell (RBC) Count 3.98 mill/uL (4.20-5.40); White Blood Cell (WBC) Count 6.2 thou/uL (4.8-10.8)
[2020-05-09 06:08] LABS: Anion Gap 18 mmol/L (10-20); BUN (Urea Nitrogen) 18 mg/dL (9.8-20.1); Calc. Creatinine Clearance 67 mL/min (70-130); Calcium 8.9 mg/dL (7.8-10.44); Carbon Dioxide 22 mmol/L (23-31); Chloride 103 mmol/L (98-107); Glucose 234 mg/dL (80-115); Potassium 5.3 mmol/L (3.5-5.1); Sodium 138 mmol/L (136-145)
[2020-05-09] MEDS: Escitalopram Oxalate 10 mg Tablet PO SCH (08:35)
[2020-05-09] MEDS: Trospium 20 MG TAB PO SCH ×2 (08:35→21:09)
[2020-05-09] MEDS: Zinc Sulfate 220 MG CAP PO SCH (08:35)
[2020-05-09] MEDS: Fish Oil 1,000 MG CAP PO SCH ×2 (08:35→21:09)
[2020-05-09] MEDS: Furosemide 20 MG TAB PO SCH (08:35)
[2020-05-09] MEDS: Clopidogrel Bisulfate 75 MG TAB PO SCH (08:35)
[2020-05-09] MEDS: HumaLOG 300 UNITS/3 ML VIAL SC PRN ×4 (08:36→21:06)
--- NOTE | 2020-05-09 14:39 | PRG ---
DATE OF SERVICE: 05/09/2020 SUBJECTIVE: The patient is doing well with no complaints. No adverse events overnight. She states that she is tolerating physical therapy well. Denies any shortness of breath or chest pain. OBJECTIVE: VITAL SIGNS: Temperature 97.9, pulse 62, respirations 18, oxygen 100% on room air, and blood pressure 152/71. GENERAL: The patient is in no distress. She is alert and oriented to person and situation. HEENT: Normocephalic and atraumatic. Extraocular muscles are intact. CARDIOVASCULAR: Regular rate and rhythm. No murmurs, rubs, or gallops. LUNGS: Clear to auscultation bilaterally. No wheezes, crackles, or rhonchi. EXTREMITIES: Normal bulk and tone. No peripheral edema. SKIN: No rashes or lesions. No cyanosis. NEUROLOGIC: Cranial nerves II through XII intact grossly. PSYCHIATRIC: Appropriate mood and affect. ASSESSMENT: 1. History of COVID-19 infection. 2. Physical deconditioning. 3. Gait instability. 4. Diabetes mellitus, type 2. 5. Confusion. 6. Hypertension. 7. History of coronary artery disease. 8. Likely syndrome of inappropriate antidiuretic hormone. 9. History of cerebrovascular accident. 10. Hyperkalemia. PLAN: Had discussion with Physical Therapy and Occupational Therapy. The patient does appear to have plateaued with her therapy. She still does demonstrate poor safety awareness, although the patient is basically ready for discharge. She is not safe to go home at this time. I discussed with the patient's daughter, Jasmine, yesterday, and I advised her that given the patient's risk of falls that placement to assisted living facility would be in her best interest. The patient's daughter states that she is unable to care for her at home and there is no way for her to have 24-hour care in the patient's own home. The patient's daughter also reported to me that the patient falls frequently at home due to forgetting to lock her wheelchair and falling after getting out of bed. Due to similar safety concerns that have been expressed by our staff, we will enlist the help of case management to assist with placement. Regarding the patient's confusion, this may be related to the delirium. The patient may have some baseline level of mild dementia, likely vascular, given her history of stroke. This will need further workup and evaluation outpatient. Will plan to assess for infection or metabolic derangements and these were largely unremarkable. With the patient's hyperkalemia, we will give her one dose of Kayexalate. The remainder of her home medications have been resumed. DISPOSITION: Stable. Job ID: [id number] MTDD
[2020-05-09] MEDS: Lantus 1000 UNITS/10 ML VIAL SC SCH (21:05)
[2020-05-10] MEDS: Levothyroxine Sodium 112 MCG TAB PO SCH (05:14)
[2020-05-10] MEDS: Zinc Sulfate 220 MG CAP PO SCH (08:20)
[2020-05-10] MEDS: Fish Oil 1,000 MG CAP PO SCH ×2 (08:20→21:20)
[2020-05-10] MEDS: Clopidogrel Bisulfate 75 MG TAB PO SCH (08:20)
[2020-05-10] MEDS: Furosemide 20 MG TAB PO SCH (08:20)
[2020-05-10] MEDS: Trospium 20 MG TAB PO SCH ×2 (08:20→21:21)
[2020-05-10] MEDS: Escitalopram Oxalate 10 mg Tablet PO SCH (08:20)
[2020-05-10] MEDS: HumaLOG 300 UNITS/3 ML VIAL SC PRN ×4 (08:21→21:23)
[2020-05-10] MEDS: Lantus 1000 UNITS/10 ML VIAL SC SCH (21:22)
[2020-05-11] MEDS: Levothyroxine Sodium 112 MCG TAB PO SCH (05:33)
[2020-05-11] MEDS: Fish Oil 1,000 MG CAP PO SCH ×2 (08:14→20:57)
[2020-05-11] MEDS: Escitalopram Oxalate 10 mg Tablet PO SCH (08:14)
[2020-05-11] MEDS: Trospium 20 MG TAB PO SCH ×2 (08:14→20:58)
[2020-05-11] MEDS: Clopidogrel Bisulfate 75 MG TAB PO SCH (08:14)
[2020-05-11] MEDS: HumaLOG 300 UNITS/3 ML VIAL SC PRN ×3 (08:15→16:52)
[2020-05-11] MEDS: Zinc Sulfate 220 MG CAP PO SCH (08:15)
[2020-05-11] MEDS: Furosemide 20 MG TAB PO SCH (08:15)
[2020-05-11] MEDS: Lantus 1000 UNITS/10 ML VIAL SC SCH (20:58)
[2020-05-12] MEDS: Levothyroxine Sodium 112 MCG TAB PO SCH (05:27)
[2020-05-12] MEDS: HumaLOG 300 UNITS/3 ML VIAL SC PRN ×4 (08:18→21:43)
[2020-05-12] MEDS: Escitalopram Oxalate 10 mg Tablet PO SCH (08:20)
[2020-05-12] MEDS: Zinc Sulfate 220 MG CAP PO SCH (08:20)
[2020-05-12] MEDS: Clopidogrel Bisulfate 75 MG TAB PO SCH (08:20)
[2020-05-12] MEDS: Trospium 20 MG TAB PO SCH ×2 (08:20→21:31)
[2020-05-12] MEDS: Fish Oil 1,000 MG CAP PO SCH ×2 (08:20→21:31)
[2020-05-12] MEDS: Furosemide 20 MG TAB PO SCH (08:21)
[2020-05-12 10:26] LABS: Anion Gap 14 mmol/L (10-20); BUN (Urea Nitrogen) 11 mg/dL (9.8-20.1); Calc. Creatinine Clearance 70 mL/min (70-130); Calcium 8.6 mg/dL (7.8-10.44); Carbon Dioxide 26 mmol/L (23-31); Chloride 101 mmol/L (98-107); Glucose 224 mg/dL (80-115); Sodium 137 mmol/L (136-145)
[2020-05-12 11:03] VITALS: BMI 25.2
[2020-05-12] MEDS: Amoxicillin/Potassium Clav 875 MG TAB PO SCH (18:13)
--- NOTE | 2020-05-12 20:58 | PRG ---
DATE OF SERVICE: 05/12/2020 SUBJECTIVE: The patient was seen and examined at bedside. No adverse events overnight. The patient denies any current symptoms of chest pain, shortness of breath, or cough. OBJECTIVE: VITAL SIGNS: Temperature 98.9, pulse 64, respirations 20, oxygen 98% on room air, and blood pressure 133/82. GENERAL: The patient is alert and oriented x3, in no distress. HEENT: Normocephalic and atraumatic. Extraocular muscles are intact. Unilateral right-sided swelling of the lower jaw. No overlying erythema. CARDIOVASCULAR: Regular rate and rhythm. No murmurs, rubs, or gallops. LUNGS: Clear to auscultation bilaterally. No wheezes, crackles, or rhonchi. EXTREMITIES: Normal bulk and tone. No peripheral edema. SKIN: No rashes, lesions, or jaundice. No cyanosis. NEUROLOGIC: Cranial nerves 2 through 12 intact grossly. No focal deficits. PSYCHIATRIC: Appropriate mood and affect. ASSESSMENT: 1. History of COVID-19 infection. 2. Physical deconditioning, secondary to prolonged hospitalization and COVID pneumonia 3. Gait instability. 4. Dental infection. 5. Diabetes mellitus type 2. 6. Confusion. 7. Hypertension. 8. History of coronary artery disease. 9. Likely syndrome of inappropriate antidiuretic hormone. 10. History of cerebrovascular accident. We will continue physical therapy and occupational therapy. Antibiotics have been started for treatment of dental infection. The patient is largely stable from a medical standpoint. She is hesitant but agreeable to placement and this has been discussed with the patient's daughter as well. We had contacted Case Management about this for further assistance. Otherwise, the remainder of the patient's home medications have been continued. Job ID: [id number] [facility]
[2020-05-12] MEDS: Acetaminophen 325 MG TAB PO PRN (21:35)
[2020-05-12] MEDS: Lantus 1000 UNITS/10 ML VIAL SC SCH (21:36)
[2020-05-13] MEDS: Levothyroxine Sodium 112 MCG TAB PO SCH (05:39)
[2020-05-13] MEDS: Amoxicillin/Potassium Clav 875 MG TAB PO SCH ×2 (08:49→17:30)
[2020-05-13] MEDS: Fish Oil 1,000 MG CAP PO SCH ×2 (08:49→20:33)
[2020-05-13] MEDS: Zinc Sulfate 220 MG CAP PO SCH (08:50)
[2020-05-13] MEDS: Clopidogrel Bisulfate 75 MG TAB PO SCH (08:50)
[2020-05-13] MEDS: Furosemide 20 MG TAB PO SCH (08:50)
[2020-05-13] MEDS: HumaLOG 300 UNITS/3 ML VIAL SC PRN ×3 (08:50→20:37)
[2020-05-13] MEDS: Trospium 20 MG TAB PO SCH ×2 (08:50→20:32)
[2020-05-13] MEDS: Escitalopram Oxalate 10 mg Tablet PO SCH (08:52)
[2020-05-13] MEDS: Lantus 1000 UNITS/10 ML VIAL SC SCH (20:33)
[2020-05-14] MEDS: Levothyroxine Sodium 112 MCG TAB PO SCH (05:41)
[2020-05-14] MEDS: Fish Oil 1,000 MG CAP PO SCH ×2 (08:32→21:46)
[2020-05-14] MEDS: Clopidogrel Bisulfate 75 MG TAB PO SCH (08:32)
[2020-05-14] MEDS: Furosemide 20 MG TAB PO SCH (08:32)
[2020-05-14] MEDS: Amoxicillin/Potassium Clav 875 MG TAB PO SCH ×2 (08:32→17:33)
[2020-05-14] MEDS: Escitalopram Oxalate 10 mg Tablet PO SCH (08:32)
[2020-05-14] MEDS: Trospium 20 MG TAB PO SCH ×2 (08:32→21:46)
[2020-05-14] MEDS: Zinc Sulfate 220 MG CAP PO SCH (08:32)
[2020-05-14] MEDS: HumaLOG 300 UNITS/3 ML VIAL SC PRN ×4 (08:33→21:50)
[2020-05-14] MEDS: Lantus 1000 UNITS/10 ML VIAL SC SCH (21:48)
[2020-05-14] MEDS: Acetaminophen 325 MG TAB PO PRN (21:54)
[2020-05-15] MEDS: Levothyroxine Sodium 112 MCG TAB PO SCH (05:07)
[2020-05-15] MEDS: Zinc Sulfate 220 MG CAP PO SCH (08:11)
[2020-05-15] MEDS: Amoxicillin/Potassium Clav 875 MG TAB PO SCH (08:12)
[2020-05-15] MEDS: Clopidogrel Bisulfate 75 MG TAB PO SCH (08:12)
[2020-05-15] MEDS: Escitalopram Oxalate 10 mg Tablet PO SCH (08:12)
[2020-05-15] MEDS: Fish Oil 1,000 MG CAP PO SCH (08:12)
[2020-05-15] MEDS: Trospium 20 MG TAB PO SCH (08:12)
[2020-05-15] MEDS: Furosemide 20 MG TAB PO SCH (08:12)
[2020-05-15] MEDS: HumaLOG 300 UNITS/3 ML VIAL SC PRN ×2 (08:19→12:06)
[2020-05-15 09:26] VITALS: BP 130/72; TEMP 98.3
--- NOTE | 2020-05-16 15:19 | DIS ---
DATE OF ADMISSION: 04/21/2020 DATE OF DISCHARGE: 05/15/2020 PROCEDURES: None. CONSULTS: None. PRIMARY DIAGNOSES: 1. Physical deconditioning, secondary to prolonged hospitalization and COVID pneumonia 2. History of COVID-19 pneumonia, resolved. SECONDARY DIAGNOSES: 1. Depression. 2. Coronary artery disease. 3. Hypothyroidism. 4. Hyperlipidemia. 5. Confusion. 6. Dental infection. DISCHARGE MEDICATIONS: 1. Plavix 75 mg p.o. daily. 2. Ranexa 1000 mg p.o. b.i.d. 3. Lovaza 2 g p.o. b.i.d. 4. Levothyroxine 112 mcg p.o. q.a.m. 5. Atorvastatin 40 mg p.o. at bedtime. 6. Tolterodine tartrate 2 mg p.o. daily. 7. Lexapro 20 mg p.o. daily. 8. Lasix 20 mg p.o. daily. 9. Zinc sulfate 220 mg p.o. daily. 10. Augmentin 875 mg p.o. b.i.d. 11. Metoprolol tartrate 25 mg p.o. b.i.d. 12. Lantus 20 units subcu at bedtime. DISCONTINUED MEDICATIONS: Lantus 10 units at bedtime. HOSPITAL COURSE: The patient is a 69-year-old female, admitted for usp and rehabilitation following treatment for COVID-19 pneumonia. The patient was stable from respiratory standpoint and needed no further supplemental oxygen or treatment to support for respiratory status. Physical and occupational therapy were ordered and patient with improvement in her abilities to transfer between her wheelchairs and bed or commode. The patient was wheelchair bound following her stroke several years ago. Attempts were made to assess with gait, however, she demonstrated very poor safety awareness and in discussions with patient's daughter, the patient has had recurrent falls at home and so attempts were made to try to have the patient placed at least in assisted-living facility, however, due to financial constraints, this was not possible, so decision was made to discharge the patient home with home health and physical therapy, occupational therapy, and usp. Otherwise, the patient remained stable and was discharged in stable condition. DISCHARGE INSTRUCTIONS: 1. Location: Home. 2. Activity: Ad tello. 3. Diet: Consistent carbohydrate. 4. Followup: Patient is instructed to follow up with primary care provider, Dr. Nataliia Swanson, within 7 days. Job ID: [id number] MTDD
--- NOTE | 2020-05-21 00:33 | PQF ---
CLINICAL DOCUMENTATION CLARIFICATION FORM: Dear : Mei Wu MD Date / Time: 05/21/2020 Please exercise your independent, professional judgment in responding to the clarification form. Clinical indicators are provided on the bottom of this form for your review Please check appropriate box(es): [ x] Fatigue is due to prolonged hospitalization [ x ] Fatigue is due to sequela of COVID [ ] Other diagnosis (Please specify if any) [ ] Unable to determine Physician Signature: Date/Time: For continuity of documentation, please document condition throughout progress notes and discharge summary. Thank You. To be completed by CDI/Coding staff for physician review: Present Clinical Indicators - Signs / Symptoms / Labs Results and Location in Medical Record [x] Physical debility & deconditioning H&P on 04/22 [x] COVID-19 Pneumonia resolved. Symptoms began on H&P on 04/22 [x] Physical & Occupational therapy were ordered & patient with improvement in her abilites Discharge summary on 05/15 [x] We will admitting patient for continued usp & physical therapy & occupational therapy to assist with strengthening & assistance with performing ADLS. H&P on 04/22 Present Risk Factors Results and Location in Medical Record [x] Aged person 70 yrs H&P on 04/22 [ ] Present Treatments Results and Location in Medical Record [x] She states he has been tolerating physical therapy well Progress notes on 05/05 [x] We will continue isolation precautions H&P on 04/22 [ ] [ ] CDS/Bottom Filler Signature:AAS Phone #: Date/Time: 05/21/2020 This is a permanent part of the Medical Record [facility]
== END 2020-05-15 16:45 | disposition home health service (06) | DRG 948 ==
LOC: MADMS 17:05
PROVIDERS: ADMIT Family Medicine; ATTEND Family Medicine
DX: R53.81 Other malaise (principal); F32.9 Major depressive disorder, single episode, unspecified; I25.10 Atherosclerotic heart disease of native coronary artery without angina pectoris; E03.9 Hypothyroidism, unspecified; E78.5 Hyperlipidemia, unspecified; Z96.642 Presence of left artificial hip joint; E87.5 Hyperkalemia; Z96.611 Presence of right artificial shoulder joint; Z86.16 Personal history of COVID-19; R26.89 Other abnormalities of gait and mobility; I10 Essential (primary) hypertension; E11.9 Type 2 diabetes mellitus without complications; F01.50 Vascular dementia, unspecified severity, without behavioral disturbance, psychotic disturbance, mood disturbance, and anxiety; Z88.6 Allergy status to analgesic agent; Z88.8 Allergy status to other drugs, medicaments and biological substances; Z79.899 Other long term (current) drug therapy; Z79.890 Hormone replacement therapy; Z79.01 Long term (current) use of anticoagulants; Z99.3 Dependence on wheelchair; Z90.49 Acquired absence of other specified parts of digestive tract; Z98.41 Cataract extraction status, right eye; Z95.5 Presence of coronary angioplasty implant and graft; Z86.73 Personal history of transient ischemic attack (TIA), and cerebral infarction without residual deficits; K04.7 Periapical abscess without sinus
CPT/HCPCS: 36415; 36416; 80048; 81003; 81015; 85025; J1815; J8540

== ENCOUNTER 2021-11-30 14:10 | Emergency (ER) | payer MEDICARE, BC ==
[~2021-11-30 14:10] MED LIST: Iopamidol 370 76% 100 ML VIAL ONE
[2021-11-30] MEDS ORDERED: Acetaminophen 500 MG TAB ONE ×2 (15:10→15:11)
[2021-11-30] MEDS ORDERED: ALTEPLASE (TPA) 50 MG/50 ML VIAL ONE (15:11)
[2021-11-30 15:12] LABS: #Eosinphils 0.1 thou/uL (0.0-0.7); #Lymphocytes 1.6 thou/uL (1.20-3.40); #Monocytes 0.6 thou/uL (0.11-0.59); #Neutrophils 5.9 thou/uL (1.40-6.50); %Basophils 0.5 % (0.0-1.0); %Eosinophils 1.2 % (0.0-10.0); %Lymphocytes 19.1 % (21.0-51.0); %Monocytes 6.9 % (0.0-10.0); %Neutrophils 72.1 % (42.0-75.0); Hemoglobin 12.8 g/dL (12.0-16.0); Mean Corpuscular HGB CONC 32.4 g/dL (32.0-36.0); Mean Corpuscular Hemoglobin 30.8 pg (27.0-31.0); Mean Corpuscular Volume 95.3 fL (78.0-98.0); Mean Platelet Volume 10.5 fL (7.4-10.4); Platelet Count 191 thou/uL (130-400); RBC Distribution Width 12.4 % (11.5-14.5); Red Blood Cell (RBC) Count 4.14 mill/uL (4.20-5.40); White Blood Cell (WBC) Count 8.2 thou/uL (4.8-10.8)
[2021-11-30 15:30] LABS: ALT (SGPT) 18 U/L (8-55); AST (SGOT) 23 U/L (5-34); Albumin 4.2 g/dL (3.4-4.8); Alkaline Phosphatase 85 U/L (40-110); Anion Gap 16 mmol/L (10-20); BUN (Urea Nitrogen) 19 mg/dL (9.8-20.1); Bilirubin, Total 0.9 mg/dL (0.2-1.2); Calc. Creatinine Clearance 0 mL/min (70-130); Calcium 9.1 mg/dL (7.8-10.44); Carbon Dioxide 24 mmol/L (23-31); Chloride 99 mmol/L (98-107); Estimated GFR 46; Glucose 268 mg/dL (83-110); Potassium 4.6 mmol/L (3.5-5.1); Protein, Total 7.2 g/dL (5.8-8.1); Sodium 134 mmol/L (136-145)
[2021-11-30] MEDS ORDERED: Fentanyl 100 MCG/2 ML VIAL ONE (16:59)
[2021-11-30 17:36] LABS: Bilirubin Negative (Negative); Blood, Urine Negative (Negative); Clarity Clear (Clear); Glucose, Urine (Dipstick) >=1000 mg/dL (Negative); Ketone, Urine Negative (Negative); Leukocyte Negative (Negative); Nitrite Negative (Negative); Protein, Urine (Dipstick) Negative (Neg-Trace); Urobilinogen 0.2 mg/dL (Less than 2); pH, Urine 6.5 (5.0-9.0)
[2021-11-30 17:37] LABS: Specific Gravity, Urine 1.028 (1.002-1.036)
== END 2021-11-30 18:06 | disposition short-term general hospital (02) ==
LOC: MADERS 14:10
DX: S27.0XXA Traumatic pneumothorax, initial encounter (principal); S22.41XA Multiple fractures of ribs, right side, initial encounter for closed fracture; I10 Essential (primary) hypertension; E11.9 Type 2 diabetes mellitus without complications; E03.9 Hypothyroidism, unspecified; E78.5 Hyperlipidemia, unspecified; I25.10 Atherosclerotic heart disease of native coronary artery without angina pectoris; W18.09XA Striking against other object with subsequent fall, initial encounter; Y93.A1 Activity, exercise machines primarily for cardiorespiratory conditioning; Z86.73 Personal history of transient ischemic attack (TIA), and cerebral infarction without residual deficits; Z95.5 Presence of coronary angioplasty implant and graft; Z79.4 Long term (current) use of insulin; Z79.899 Other long term (current) drug therapy
CPT/HCPCS: 36415; 70450; 71260; 72125; 74177; 80053; 81003; 85025; 96374; J2997; J3010; Q9967

== ENCOUNTER 2022-04-29 15:36 | Outpatient (CLI) | payer MEDICARE, BC ==
[2022-04-29 15:51] LABS: Bilirubin Negative (Negative); Blood, Urine Negative (Negative); Clarity Slightly Cloudy (Clear); Glucose, Urine (Dipstick) Negative (Negative); Ketone, Urine Negative (Negative); Leukocyte Large (Negative); Nitrite Negative (Negative); Protein, Urine (Dipstick) Negative (Neg-Trace); Specific Gravity, Urine 1.015 (1.005-1.030); Urobilinogen 0.2 mg/dL (Less than 2); pH, Urine 5.5 (5.0-9.0)
[2022-04-29 16:13] LABS: Bacteria/HPF 4+ HPF (None Seen); RBC/HPF 0-3 HPF (0-3); Squamous Epithelial None Seen HPF (0-3); WBC/HPF Greater Than 50 HPF (0-3)
== END 2022-04-29 15:37 | disposition home or self-care (01) ==
LOC: MADLAB 15:36
PROVIDERS: ATTEND Internal Medicine
DX: N32.81 Overactive bladder (principal)
CPT/HCPCS: 81003; 81015; 87077; 87086; 87186

== ENCOUNTER 2024-03-07 10:14 | Emergency (ER) | payer BC, MEDICARE ==
[2024-03-07 11:01] LABS: ALT (SGPT) 15 U/L (8-55); AST (SGOT) 19 U/L (5-34); Albumin 3.6 g/dL (3.4-4.8); Alkaline Phosphatase 68 U/L (40-110); Anion Gap 16 mmol/L (10-20); BUN (Urea Nitrogen) 21 mg/dL (9.8-20.1); Calc. Creatinine Clearance 0 mL/min (70-130); Calcium 9.2 mg/dL (7.8-10.44); Carbon Dioxide 17 mmol/L (23-31); Chloride 101 mmol/L (98-107); Estimated GFR 57; Globulin 3.5 g/dL (2.4-3.5); Glucose 181 mg/dL (83-110); Potassium 4.3 mmol/L (3.5-5.1); Protein, Total 7.1 g/dL (5.8-8.1); Sodium 130 mmol/L (136-145)
[2024-03-07 11:05] LABS: Hematocrit 37.9 % (36.0-47.0); Hemoglobin 12.2 g/dL (12.0-16.0); Mean Corpuscular HGB CONC 32.2 g/dL (32.0-36.0); Mean Corpuscular Hemoglobin 30.3 pg (27.0-31.0); Mean Platelet Volume 8.7 fL (7.4-10.4); Platelet Count 205 10x3/uL (130-400); Red Blood Cell (RBC) Count 4.04 mill/uL (4.20-5.40); White Blood Cell (WBC) Count 15.3 10x3/uL (4.8-10.8)
[2024-03-07 11:06] LABS: Band 2 % (5-11); Lymphocytes 2 % (21-51); MDiff Complete? YES; Manual Diff?? YES; Monocytes 3 % (0-10); Neutrophil 91 % (42-75); Platelet Adequacy Comment Appears Adequate; RBC Morph Comment Within Normal Limits; Reactive Lymphocytes 2 % (0-10)
[2024-03-07 11:15] LABS: Bilirubin Negative (Negative); Blood, Urine Trace (Negative); Glucose, Urine (Dipstick) >=1000 mg/dL (Negative); Ketone, Urine 15 mg/dL (Negative); Leukocyte Small (Negative); Nitrite Negative (Negative); Protein, Urine (Dipstick) Negative (Neg-Trace); Specific Gravity, Urine 1.015 (1.005-1.030); Urobilinogen 0.2 mg/dL (Less than 2)
[2024-03-07 11:16] LABS: Clarity Cloudy (Clear)
[2024-03-07] MEDS ORDERED: Sodium Chloride 0.9% 500 ML ONE (11:18)
[2024-03-07 11:23] LABS: Bacteria/HPF Rare-Few HPF (None Seen); CAUTI Indications for Culture Pelvic or flank pain; RBC/HPF 0-3 HPF (0-3); Squamous Epithelial 0-3 HPF (0-3); Urine Culture Reflex Yes Yes; WBC/HPF Greater Than 50 HPF (0-3)
[2024-03-07 11:25] LABS: Troponin I 0.042 ng/mL (< 0.028)
[2024-03-07] MEDS ORDERED: cefTRIAXone (ROCEPHIN) 1 GM VIAL ONE (12:22)
[2024-03-07] MEDS ORDERED: Sodium Chloride 0.9% 100 ML ONE (12:22)
[2024-03-07] MEDS ORDERED: Azithromycin 500 MG VIAL ONE (12:50)
[2024-03-07] MEDS ORDERED: Sodium Chloride 0.9% 250 ML 250 ML ONE (12:50)
[2024-03-07 14:25] LABS: Troponin I 0.065 ng/mL (< 0.028)
== END 2024-03-07 16:53 | disposition short-term general hospital (02) ==
LOC: MADERS 10:14
DX: J18.9 Pneumonia, unspecified organism (principal); E87.1 Hypo-osmolality and hyponatremia; M62.81 Muscle weakness (generalized); R79.89 Other specified abnormal findings of blood chemistry; I10 Essential (primary) hypertension; E11.9 Type 2 diabetes mellitus without complications; E03.9 Hypothyroidism, unspecified; E78.5 Hyperlipidemia, unspecified; I25.10 Atherosclerotic heart disease of native coronary artery without angina pectoris; Z55.6 Problems related to health literacy; Z79.899 Other long term (current) drug therapy; Z86.73 Personal history of transient ischemic attack (TIA), and cerebral infarction without residual deficits; Z79.82 Long term (current) use of aspirin
CPT/HCPCS: 70450; 71045; 72125; 74176; 81001; 82550; 83605; 83880; 84484 ×2; 87040; 87077; 87086; 93005; J0456; J0696; J7030; J7050; 36415; 51701; 80053; 84443; 85025; 87186; 96361; 96365; 96367

== ENCOUNTER 2024-03-11 11:58 | Inpatient (IN) | payer MEDICARE, BC ==
[2024-03-11 13:37] VITALS: BMI 25.7
[2024-03-11] MEDS ORDERED: Dextrose 50% Abboject 50 ML SYRINGE SLOW IVP PRN (15:02)
[2024-03-11] MEDS ORDERED: Glucagon 1 MG/ML KIT IM PRN (15:02)
[2024-03-11] MEDS ORDERED: Ondansetron ODT 4 MG TAB PO PRN (15:03)
[2024-03-11] MEDS: Insulin Lispro 100 UNIT/ML 10 ML VIAL SC PRN (17:01)
[2024-03-11] MEDS: Lantus 1000 UNITS/10 ML VIAL SC SCH (21:02)
[2024-03-11] MEDS: Clopidogrel Bisulfate 75 MG TAB PO SCH (21:07)
[2024-03-11] MEDS: Trospium 20 MG TAB PO SCH (21:07)
[2024-03-11] MEDS: Amlodipine 5 MG TAB PO SCH (21:07)
[2024-03-11] MEDS: Sulfameth/Trimethoprim DS 800-160mg TAB PO SCH (21:07)
[2024-03-11] MEDS: DULoxetine 20 MG CAP PO SCH (21:07)
[2024-03-11] MEDS: Atorvastatin Calcium 40 MG TAB PO SCH (21:08)
[2024-03-11] MEDS: Ranolazine ER 500 MG TAB PO SCH (21:08)
[2024-03-11] MEDS: Mirtazapine 15 MG TAB PO SCH (21:08)
[2024-03-12] MEDS: Levothyroxine Sodium 112 MCG TAB PO SCH (05:22)
[2024-03-12] MEDS: Enoxaparin 40 MG (0.4 mL) SYRINGE SC SCH (08:54)
[2024-03-12] MEDS: Empagliflozin 10 MG TAB PO SCH (08:55)
[2024-03-12] MEDS ORDERED: TOLTERODINE TARTRATE 2 MG PO SCH (09:00)
[2024-03-12] MEDS: ARIPIPRAZOLE 5 MG PO SCH (09:04)
[2024-03-12] MEDS: Colestipol 1 GM TAB PO SCH (11:32)
[2024-03-13] MEDS: FLU (Fluad Triv) TS24-25 (65UP)/MF59C/PF 45 MCG/0.5 ML Syringe IM ONE (09:10)
[2024-03-13] MEDS: Aripiprazole 2 MG TAB PO SCH (09:12)
[2024-03-14] MEDS: Acetaminophen 325 MG TAB PO PRN (04:54)
[2024-03-14] MEDS: Lidocaine 4% Topical Sol 50 ML BOT FS SCH (12:00)
[2024-03-19] MEDS: DULoxetine 30 MG CAP PO SCH (20:50)
[2024-03-20] MEDS: Cholestyramine/Aspartame 4 gm Packet PO SCH (11:59)
[2024-03-20] MEDS: Metoprolol Tartrate 25 MG TAB PO SCH (20:17)
[2024-03-21] MEDS ORDERED: Acetaminophen 325 MG TAB ONE ×2 (06:11→09:00)
[2024-03-21] MEDS ORDERED: Aripiprazole 2 MG TAB ONE ×2 (09:00→09:11)
[2024-03-21] MEDS ORDERED: DULoxetine 30 MG CAP ONE ×3 (09:00→20:50)
[2024-03-21] MEDS ORDERED: Metoprolol Tartrate 25 MG TAB ONE ×3 (09:00→20:50)
[2024-03-21] MEDS ORDERED: Empagliflozin 10 MG TAB ONE ×2 (09:00→09:11)
[2024-03-21] MEDS ORDERED: Trospium 20 MG TAB ONE ×3 (09:00→20:50)
[2024-03-21] MEDS ORDERED: Cholestyramine/Aspartame 4 gm Packet ONE ×2 (09:00→09:11)
[2024-03-21] MEDS ORDERED: Ranolazine ER 500 MG TAB ONE ×3 (09:00→20:50)
[2024-03-21] MEDS ORDERED: Enoxaparin 40 MG (0.4 mL) SYRINGE ONE ×2 (09:00→09:11)
[2024-03-21] MEDS ORDERED: Levothyroxine Sodium 112 MCG TAB ONE (09:11)
[2024-03-21] MEDS ORDERED: Amlodipine 5 MG TAB ONE (20:50)
[2024-03-21] MEDS ORDERED: Atorvastatin Calcium 40 MG TAB ONE (20:50)
[2024-03-21] MEDS ORDERED: Clopidogrel Bisulfate 75 MG TAB ONE (20:50)
[2024-03-21] MEDS ORDERED: Mirtazapine 15 MG TAB ONE (20:50)
[2024-03-22] MEDS ORDERED: Levothyroxine Sodium 112 MCG TAB ONE (05:55)
[2024-03-22] MEDS ORDERED: Metoprolol Tartrate 25 MG TAB ONE ×2 (10:10→20:30)
[2024-03-22] MEDS ORDERED: Empagliflozin 10 MG TAB ONE (10:10)
[2024-03-22] MEDS ORDERED: DULoxetine 30 MG CAP ONE ×2 (10:10→20:30)
[2024-03-22] MEDS ORDERED: Trospium 20 MG TAB ONE ×2 (10:10→20:30)
[2024-03-22] MEDS ORDERED: Ranolazine ER 500 MG TAB ONE ×2 (10:10→20:30)
[2024-03-22] MEDS ORDERED: Aripiprazole 2 MG TAB ONE (10:10)
[2024-03-22] MEDS ORDERED: Enoxaparin 40 MG (0.4 mL) SYRINGE ONE (10:10)
[2024-03-22] MEDS ORDERED: Cholestyramine/Aspartame 4 gm Packet ONE (10:10)
[2024-03-22] MEDS ORDERED: Mirtazapine 15 MG TAB ONE (20:30)
[2024-03-22] MEDS ORDERED: Amlodipine 5 MG TAB ONE (20:30)
[2024-03-22] MEDS ORDERED: Atorvastatin Calcium 40 MG TAB ONE (20:30)
[2024-03-22] MEDS ORDERED: Acetaminophen 325 MG TAB ONE (20:30)
[2024-03-22] MEDS ORDERED: Clopidogrel Bisulfate 75 MG TAB ONE (20:30)
[2024-03-23] MEDS: Trospium 20 MG TAB ONE (09:38)
[2024-03-23] MEDS: Enoxaparin 40 MG (0.4 mL) SYRINGE ONE (12:29)
[2024-03-28] MEDS ORDERED: tiZANidine HCl 4 MG TAB PO PRN (09:19)
[2024-03-28] MEDS: Acetaminophen 325 MG TAB PO PRN (18:02)
[2024-04-04 12:26] VITALS: BMI 25.6
[2024-04-06] MEDS: Polyethylene Glycol 3350 17 GM Packet PO PRN (11:53)
[2024-04-06 19:32] VITALS: BP 123/73; TEMP 98.7
[2024-04-06] MEDS: Mirtazapine 15 MG TAB PO SCH (20:47)
== END 2024-04-06 21:20 | disposition home or self-care (01) | DRG 947 ==
LOC: MADMS 13:21
PROVIDERS: ADMIT Family Medicine; ATTEND Family Medicine
DX: R53.81 Other malaise (principal); I50.33 Acute on chronic diastolic (congestive) heart failure; J18.9 Pneumonia, unspecified organism; N39.0 Urinary tract infection, site not specified; I10 Essential (primary) hypertension; E03.9 Hypothyroidism, unspecified; I25.10 Atherosclerotic heart disease of native coronary artery without angina pectoris; Z95.1 Presence of aortocoronary bypass graft; Z88.8 Allergy status to other drugs, medicaments and biological substances; Z79.899 Other long term (current) drug therapy; Z90.49 Acquired absence of other specified parts of digestive tract; Z90.710 Acquired absence of both cervix and uterus; E11.65 Type 2 diabetes mellitus with hyperglycemia; Z66 Do not resuscitate
CPT/HCPCS: 36416; 71045; 90653; J1650; J1815

== ENCOUNTER 2024-05-21 12:13 | Emergency (ER) | payer MEDICARE, BC ==
[2024-05-21 13:10] LABS: ALT (SGPT) 37 U/L (Less than 34); AST (SGOT) 58 U/L (11-34); Albumin 4.1 g/dL (3.1-4.5); Alkaline Phosphatase 85 U/L (40-110); Anion Gap 21 mmol/L (10-20); BUN (Urea Nitrogen) 12 mg/dL (9.8-20.1); Calc. Creatinine Clearance 0 mL/min (70-130); Calcium 8.5 mg/dL (7.8-10.44); Carbon Dioxide 13 mmol/L (23-31); Chloride 89 mmol/L (98-107); Estimated GFR 62; Globulin 3.2 g/dL (2.4-3.5); Glucose 199 mg/dL (83-110); Magnesium 1.6 mg/dL (1.6-2.6); Potassium 4.5 mmol/L (3.5-5.1); Protein, Total 7.3 g/dL (5.8-8.1)
[2024-05-21] MEDS ORDERED: Ipratropium/Albuterol 3 ML NEB ONE (13:12)
[2024-05-21 13:13] LABS: Hematocrit 42.3 % (36.0-47.0); Hemoglobin 13.5 g/dL (12.0-16.0); Mean Corpuscular HGB CONC 31.8 g/dL (32.0-36.0); Mean Corpuscular Hemoglobin 29.1 pg (27.0-31.0); Mean Corpuscular Volume 91.3 fl (78.0-98.0); Mean Platelet Volume 9.3 fL (7.4-10.4); Platelet Count 174 10x3/uL (130-400); RBC Distribution Width 13.1 % (11.5-14.5); Red Blood Cell (RBC) Count 4.63 mill/uL (4.20-5.40); White Blood Cell (WBC) Count 8.8 10x3/uL (4.8-10.8)
[2024-05-21] MEDS ORDERED: Furosemide 40 MG (4 mL) VIAL ONE (13:13)
[2024-05-21] MEDS ORDERED: Oseltamivir 75 MG CAP ONE (13:13)
[2024-05-21 13:18] LABS: Base Excess-Venous -8.3 mmol/L (-2.0 to 3.0); CO2 Tension (PvCO2) 38.9 mmHg (42.0-51.0); Calcium, Ionized 1.08 mmol/L (1.15-1.33); Chloride 88 mmol/L (98-107); Potassium 4.6 mmol/L (3.5-5.1); Sodium 117 mmol/L (138-145); T. Carbon Dioxide 19.2 mmol/L (22.0-28.0); vO2 Saturation-calc 80.4 % (60.0-85.0)
[2024-05-21 13:19] LABS: Critical Call Chemistry NUR.PS3@1318; Sodium 118 mmol/L (136-145)
[2024-05-21 13:21] LABS: Critical Call Chem Troponin I NUR.PS3@1318; Troponin I 0.454 ng/mL (< 0.028)
[2024-05-21 13:22] LABS: Band 3 % (5-11); Lymphocytes 3 % (21-51); MDiff Complete? YES; Manual Diff?? YES; Monocytes 8 % (0-10); Neutrophil 86 % (42-75)
[2024-05-21 13:23] LABS: Platelet Adequacy Comment Appears Adequate; RBC Morph Comment Within Normal Limits
[2024-05-21 13:57] LABS: Acetaminophen Less than 10 mcg/mL (Less than 10); Alcohol Less than 10.0 mg/dL (Less than 10); Salicylate Less than 8.0 mg/dL (Less than 8.0)
[2024-05-21 14:03] LABS: Bilirubin Negative (Negative); Blood, Urine Trace (Negative); Clarity Clear (Clear); Glucose, Urine (Dipstick) >=1000 mg/dL (Negative); Ketone, Urine 40 mg/dL (Negative); Leukocyte Negative (Negative); Nitrite Negative (Negative); Protein, Urine (Dipstick) Negative (Neg-Trace); Specific Gravity, Urine 1.015 (1.005-1.030); Urobilinogen 0.2 mg/dL (Less than 2)
[2024-05-21 14:15] LABS: CAUTI Indications for Culture Dysuria,urgency,freq; RBC/HPF 0-3 HPF (0-3); Squamous Epithelial 0-3 HPF (0-3); WBC/HPF 0-3 HPF (0-3)
[2024-05-21 14:16] LABS: Bacteria/HPF 1+ HPF (None Seen); Urine Culture Reflex No No
[2024-05-21] MEDS ORDERED: Aspirin Chewable 81 MG TAB ONE (14:33)
[2024-05-21] MEDS ORDERED: Enoxaparin 80 MG (0.8 mL) SYRINGE ONE (14:34)
== END 2024-05-21 15:47 | disposition short-term general hospital (02) ==
LOC: MADERS 12:13
DX: I21.4 Non-ST elevation (NSTEMI) myocardial infarction (principal); I11.0 Hypertensive heart disease with heart failure; I50.9 Heart failure, unspecified; J10.1 Influenza due to other identified influenza virus with other respiratory manifestations; E87.20 Acidosis, unspecified; E87.1 Hypo-osmolality and hyponatremia; E03.9 Hypothyroidism, unspecified; E78.5 Hyperlipidemia, unspecified; I25.10 Atherosclerotic heart disease of native coronary artery without angina pectoris; E11.9 Type 2 diabetes mellitus without complications; Z86.73 Personal history of transient ischemic attack (TIA), and cerebral infarction without residual deficits; Z95.5 Presence of coronary angioplasty implant and graft; Z79.4 Long term (current) use of insulin; Z79.890 Hormone replacement therapy; Z79.02 Long term (current) use of antithrombotics/antiplatelets; Z79.84 Long term (current) use of oral hypoglycemic drugs; Z79.899 Other long term (current) drug therapy
CPT/HCPCS: 36416; 70450; 71045; 80053; 80307; 81001; 82330; 82435; 82803; 83605; 83735; 83880; 84132; 84295; 84443; 84484; 85014; 85025; 85379; 87428; 93005; 94760; 96372; 96374; 36415-59; J1650; J1940; J7620

== ENCOUNTER 2024-06-22 15:08 | Emergency (ER) | payer MEDICARE, BC ==
[2024-06-22 15:52] LABS: INR-International Normal Ratio 1.2; PTT 32.5 sec (22.9-36.1); Prothrombin Time 14.9 sec (12.0-14.7)
[2024-06-22] MEDS ORDERED: Furosemide 40 MG (4 mL) VIAL ONE (15:55)
[2024-06-22 15:58] LABS: ALT (SGPT) 22 U/L (Less than 34); AST (SGOT) 35 U/L (11-34); Albumin 4.2 g/dL (3.1-4.5); Alkaline Phosphatase 106 U/L (40-110); Anion Gap 21 mmol/L (10-20); BUN (Urea Nitrogen) 13 mg/dL (9.8-20.1); Bilirubin, Total 1.6 mg/dL (0.3-1.2); Calc. Creatinine Clearance 0 mL/min (70-130); Carbon Dioxide 16 mmol/L (23-31); Chloride 97 mmol/L (98-107); Estimated GFR 56; Globulin 3.9 g/dL (2.4-3.5); Glucose 214 mg/dL (83-110); Protein, Total 8.1 g/dL (5.8-8.1); Sodium 129 mmol/L (136-145)
[2024-06-22 15:59] LABS: Band 7 % (5-11); Base Excess-Venous -3.8 mmol/L (-2.0 to 3.0); Bicarbonate (HCO3v) 22.9 mmol/L (22.0-28.0); CO2 Tension (PvCO2) 45.8 mmHg (42.0-51.0); Calcium, Ionized 1.15 mmol/L (1.15-1.33); Chloride 98 mmol/L (98-107); Hematocrit 45.5 % (36.0-47.0); Hemoglobin - Calc 17.1 g/dL (12.0-16.0); Hypochromia SLIGHT = 6-15 cells (100X) (0-5/hpf); Lymphocytes 19 % (21-51); MDiff Complete? YES; Mean Corpuscular HGB CONC 30.8 g/dL (32.0-36.0); Mean Corpuscular Hemoglobin 28.8 pg (27.0-31.0); Mean Corpuscular Volume 93.7 fl (78.0-98.0); Mean Platelet Volume 10.1 fL (7.4-10.4); Monocytes 9 % (0-10); Neutrophil 65 % (42-75); Platelet Adequacy Comment Appears Adequate; Platelet Count 221 10x3/uL (130-400); Potassium 5.2 mmol/L (3.5-5.1); RBC Distribution Width 15.7 % (11.5-14.5); Red Blood Cell (RBC) Count 4.85 mill/uL (4.20-5.40); Sodium 129 mmol/L (138-145); T. Carbon Dioxide 24.3 mmol/L (22.0-28.0); White Blood Cell (WBC) Count 9.1 10x3/uL (4.8-10.8); vO2 Saturation-calc 83.8 % (60.0-85.0)
[2024-06-22 16:00] LABS: Troponin I 0.019 ng/mL (< 0.028)
[2024-06-22 17:13] LABS: Bilirubin Negative (Negative); Blood, Urine Moderate (Negative); Clarity Slightly Cloudy (Clear); Glucose, Urine (Dipstick) >=1000 mg/dL (Negative); Ketone, Urine Negative (Negative); Leukocyte Small (Negative); Nitrite Negative (Negative); Protein, Urine (Dipstick) Negative (Neg-Trace); Urobilinogen 0.2 mg/dL (Less than 2)
[2024-06-22 17:15] LABS: Bacteria/HPF 3+ HPF (None Seen); CAUTI Indications for Culture Alt mental st,lethar; Squamous Epithelial 0-3 HPF (0-3); WBC/HPF Greater Than 50 HPF (0-3)
[2024-06-22 17:16] LABS: Urine Culture Reflex Yes Yes
[2024-06-22] MEDS ORDERED: Metoprolol Tartrate 5 MG (5 mL) VIAL ONE ×3 (17:25→18:07)
== END 2024-06-22 18:25 | disposition home or self-care (01) ==
LOC: MADERS 15:08
DX: I48.91 Unspecified atrial fibrillation (principal); I11.0 Hypertensive heart disease with heart failure; I50.9 Heart failure, unspecified; E87.1 Hypo-osmolality and hyponatremia; R82.71 Bacteriuria; E03.9 Hypothyroidism, unspecified; I25.10 Atherosclerotic heart disease of native coronary artery without angina pectoris; E11.9 Type 2 diabetes mellitus without complications; I63.9 Cerebral infarction, unspecified; F41.8 Other specified anxiety disorders; I25.2 Old myocardial infarction; Z86.73 Personal history of transient ischemic attack (TIA), and cerebral infarction without residual deficits; Z79.4 Long term (current) use of insulin; Z79.899 Other long term (current) drug therapy
CPT/HCPCS: 71045; 71275; 80053; 81001; 82330; 82435; 82803; 83605; 83735; 83880; 84132; 84295; 84443; 84484; 85014; 85025; 85379; 85610; 85730; 87077; 87086; 87186; 93005; 94760; 96374; 96375; 96376; J1940